=== PATIENT | male | born 1965 | race Caucasian/White ===

== ENCOUNTER → 2016-06-01 | Outpatient (CLI) | payer OTHER | LOC: RAD 09:16 | PROVIDERS: ATTEND Internal Medicine Pulmonary Disease | DX: R91.8 Other nonspecific abnormal finding of lung field (principal) | CPT/HCPCS: 71250 ==

== ENCOUNTER 2016-06-07 09:54 | Day surgery (SDC) | payer OTHER ==
[2016-06-01 10:38] LABS: ABSOLUTE EOSINOPHILS # (AUTO) 0.1 10^3/uL (0.0-0.6); ABSOLUTE LYMPHOCYTES (AUTO) 1.3 10^3/uL (0.5-4.7); ABSOLUTE MONOCYTES (AUTO) 0.8 10^3/uL (0.1-1.4); ABSOLUTE NEUT (AUTO) 6.3 10^3/uL (1.7-8.2); BASOPHILS % (AUTO) 0.5 % (0-2); EOSINOPHILS % (AUTO) 1.5 % (0-6); HEMATOCRIT 38.8 % (37.9-51.0); HEMOGLOBIN 13.1 g/dL (13.5-17.0); HGB HCT DIFFERENCE 0.5; LYMPHOCYTES % (AUTO) 15.4 % (13-45); MEAN CORPUSCULAR HEMOGLOBIN 30.9 pg (27.0-33.4); MEAN CORPUSCULAR HGB CONC 33.8 g/dL (32.0-36.0); MEAN CORPUSCULAR VOLUME 91 fl (80-97); MONOCYTES % (AUTO) 9.3 % (3-13); RED BLOOD COUNT 4.25 10^6/uL (4.35-5.55); RED CELL DISTRIBUTION WIDTH 14.8 % (11.5-14.0); SEGMENTED NEUTROPHILS % (AUTO) 73.3 % (42-78); WHITE BLOOD COUNT 8.6 10^3/uL (4.0-10.5)
[2016-06-01 10:43] LABS: PROTHROMBIN TIME 12.5 SEC (11.4-15.4)
[2016-06-01 11:06] LABS: ANION GAP 13 (5-19); BLOOD UREA NITROGEN 20 mg/dL (7-20); CALCIUM 9.5 mg/dL (8.4-10.2); CARBON DIOXIDE 28 mmol/L (22-30); CHLORIDE 100 mmol/L (98-107); CREATININE RESULT 0.96 mg/dL (0.52-1.25); GLUCOSE 115 mg/dL (75-110); POTASSIUM 5.3 mmol/L (3.6-5.0); SODIUM 140.9 mmol/L (137-145)
[~2016-06-07 09:54] MED LIST: ALBUTEROL SULFATE 0.083% NEB 2.5 MG/3 ML AMPUL NEB PRN; LACTATED RINGERS 1000 ML IV PRN; LIDOCAINE 0.5% INJ-PF (5 MG/ML) 50 ML SDV SUBCUT PRN; LIDOCAINE 2% INJ-PF (20 MG/ML) 10 ML AMPUL ONE; LIDOCAINE 4% INJ/PF (40 MG/ML) 5 ML AMPUL NEB PRN; SUCCINYLCHOLINE CHLORIDE INJ 200 MG/10 ML VIAL ONE
[2016-06-07] MEDS ORDERED: PROPOFOL INJ 200 MG/20 ML VIAL IV ONE (11:26)
[2016-06-07] MEDS ORDERED: FENTANYL CITRATE INJ/PF 100 MCG/2 ML AMPUL ONE ×2 (11:26→13:06)
[2016-06-07] MEDS ORDERED: DEXMEDETOMIDINE INJ 80 MCG/20 ML VIAL IV ONE (11:26)
[2016-06-07] MEDS ORDERED: MIDAZOLAM 2 MG/2 ML INJ ONE (11:26)
--- NOTE | 2016-06-07 13:53 | Operative Report ---
Operative Report DATE OF SURGERY: 06/07/16 Operative Report: NPO 12 hrs prior to procedure taken to brochoscopy suite,intubated # 8 ET tube.Then tracheo b;consents reviewed,iv access established.Tracheobronchial tree was exsplored.No abnormalities of distal trache;mild splaying of the cecilio.Lmain stem ,Lupper lobe,lingulaand Llower lobe were normal.There were no abnormalities of the R main stem bronchu,bronchus intermedius,R middle lobe or R lower lobe. There was SUBMUCOSAL SWELLING AND DISTOTION OF ALL SUBSEGMENTS R UPPER LOBE;lavage,transbronchial and Larson needle biopsy wer taken from R upper lobe sent to lab for appropriate studies.Patient tolerate proceedure well SAO2 99% CXR in progress. PREOPERATIVE DIAGNOSIS: RUL Mass POSTOPERATIVE DIAGNOSIS: RUL Mass OPERATION: fiberoptic bronchoscopy with bronchoalveolar lavage;transbronchial; Larson needle biopsy SURGEON: KIRTI LANIER ANESTHESIA: GA TISSUE REMOVED OR ALTERED: broncho-alveolar lavage;transbronchial biopsy;Larson needle biopsy COMPLICATIONS: none ESTIMATED BLOOD LOSS: 5cc INTRAOPERATIVE FINDINGS: diffuse submucosal swelling RUL subsegments
[2016-06-07] MEDS ORDERED: ACETAMINOPHEN 100 ML IV ONE (14:09)
[2016-06-07 14:37] LABS: FLUID APPEARANCE TURBID; FLUID RBC DILUENT USED SALINE; FLUID RBC DILUTION FACTOR 21; FLUID RBC SIDE 1 195; FLUID RBC SIDE 2 175; FLUID TYPE BRONCHIAL LAVAGE; TOTAL RBC SQUARES COUNTED FLD 5
[2016-06-07 15:27] VITALS: BP 117/74
--- NOTE | 2016-06-07 15:42 | EKG REPORT ---
SEVERITY:- NORMAL ECG - SINUS RHYTHM : Confirmed by: Bharati Thomason MD 07-Jun-2016 15:41:47
== END 2016-06-07 15:40 | disposition home or self-care (01) ==
LOC: OROUT 09:54
PROVIDERS: ATTEND Internal Medicine Pulmonary Disease
PROC: 0BBC8ZX Excision of Right Upper Lung Lobe, Via Natural or Artificial Opening Endoscopic, Diagnostic (ICD-10-PCS; principal; 2016-06-07 12:00)
DX: C34.11 Malignant neoplasm of upper lobe, right bronchus or lung (principal); I20.9 Angina pectoris, unspecified; I10 Essential (primary) hypertension; Q05.9 Spina bifida, unspecified; Z79.899 Other long term (current) drug therapy; Z71.6 Tobacco abuse counseling; Z87.891 Personal history of nicotine dependence; Z87.01 Personal history of pneumonia (recurrent)
CPT/HCPCS: 31628; 31629; 31624; 36415 ×2; 87070; 87205; 87206; 87116; 87101; 84132; 85025; 85610; 85730; 89050; 80048; 87015; 88162; 88342 ×2; 88341 ×2; 88305 ×2; 88313 ×2; 71010; 93005; 93010; 94640; J2250; J3010; J0330; J2704; J3490 ×3; J0131; 520

== ENCOUNTER → 2016-06-22 | Outpatient (CLI) | payer OTHER | LOC: RAD 10:09 | PROVIDERS: ATTEND Internal Medicine | DX: C34.90 Malignant neoplasm of unspecified part of unspecified bronchus or lung (principal) | CPT/HCPCS: 70553; A9577 ==

== ENCOUNTER 2016-06-26 08:08 | Outpatient (CLI) | payer OTHER ==
[~2016-06-26 08:08] MED LIST changes: -ALBUTEROL SULFATE 0.083% NEB 2.5 MG/3 ML AMPUL NEB PRN; +CISPLATIN IV PRN; +ETOPOSIDE IV PRN; +FOSAPREPITANT DIMEGLUMINE 150 MG in NORMAL SALINE 150 ML IV PRN; +FUROSEMIDE INJ/PF 20 MG/2 ML SDV IV PRN; -LACTATED RINGERS 1000 ML IV PRN; -LIDOCAINE 0.5% INJ-PF (5 MG/ML) 50 ML SDV SUBCUT PRN; -LIDOCAINE 2% INJ-PF (20 MG/ML) 10 ML AMPUL ONE; -LIDOCAINE 4% INJ/PF (40 MG/ML) 5 ML AMPUL NEB PRN; +NORMAL SALINE 1000 ML 1,000 ML IV PRN; +NORMAL SALINE IV PRN; +ONDANSETRON HCL/PF 16 MG, DEXAMETHASONE SOD PHOSPHATE 10 MG in NORMAL SALINE 50 ML IV PRN; -SUCCINYLCHOLINE CHLORIDE INJ 200 MG/10 ML VIAL ONE
[2016-06-26 08:57] LABS: ABSOLUTE EOSINOPHILS # (AUTO) 0.3 10^3/uL (0.0-0.6); ABSOLUTE LYMPHOCYTES (AUTO) 1.6 10^3/uL (0.5-4.7); ABSOLUTE MONOCYTES (AUTO) 0.5 10^3/uL (0.1-1.4); ABSOLUTE NEUT (AUTO) 2.8 10^3/uL (1.7-8.2); BASOPHILS % (AUTO) 0.8 % (0-2); HEMATOCRIT 38.4 % (37.9-51.0); HEMOGLOBIN 13.4 g/dL (13.5-17.0); HGB HCT DIFFERENCE 1.8; LYMPHOCYTES % (AUTO) 30.8 % (13-45); MEAN CORPUSCULAR HEMOGLOBIN 31.6 pg (27.0-33.4); MEAN CORPUSCULAR HGB CONC 34.9 g/dL (32.0-36.0); MEAN CORPUSCULAR VOLUME 91 fl (80-97); MONOCYTES % (AUTO) 9.8 % (3-13); RED BLOOD COUNT 4.23 10^6/uL (4.35-5.55); RED CELL DISTRIBUTION WIDTH 14.5 % (11.5-14.0); SEGMENTED NEUTROPHILS % (AUTO) 53.6 % (42-78); WHITE BLOOD COUNT 5.3 10^3/uL (4.0-10.5)
[2016-06-26 09:19] LABS: ALANINE AMINOTRANSFERASE 51 U/L (21-72); ALBUMIN 4.7 g/dL (3.5-5.0); ALKALINE PHOSPHATASE 84 U/L (38-126); ANION GAP 16 (5-19); ASPARTATE AMINO TRANSFERASE 70 U/L (17-59); BILIRUBIN,DIRECT 0.3 mg/dL (0.0-0.4); BILIRUBIN,TOTAL 0.6 mg/dL (0.2-1.3); BLOOD UREA NITROGEN 7 mg/dL (7-20); CALCIUM 9.7 mg/dL (8.4-10.2); CARBON DIOXIDE 26 mmol/L (22-30); CHLORIDE 100 mmol/L (98-107); CREATININE RESULT 0.98 mg/dL (0.52-1.25); GLUCOSE 92 mg/dL (75-110); POTASSIUM 4.2 mmol/L (3.6-5.0); SODIUM 142.3 mmol/L (137-145); TOTAL PROTEIN 7.7 g/dL (6.3-8.2)
[2016-06-26 10:00] VITALS: BP 125/77
== END 2016-06-26 14:20 | disposition home or self-care (01) ==
LOC: II 08:08 → 5TH 08:12 → II 14:20
PROVIDERS: ATTEND Specialist
PROC: 3E03305 Introduction of Other Antineoplastic into Peripheral Vein, Percutaneous Approach (ICD-10-PCS; principal; 2016-06-26)
PROC: 3E033GC Introduction of Other Therapeutic Substance into Peripheral Vein, Percutaneous Approach (ICD-10-PCS; 2016-06-26)
DX: Z51.11 Encounter for antineoplastic chemotherapy (principal); C34.90 Malignant neoplasm of unspecified part of unspecified bronchus or lung; D70.1 Agranulocytosis secondary to cancer chemotherapy
CPT/HCPCS: 96413; 96367; 96375; 96361; 96417; 36415; 85025; 80053; J9060; J1940; J9181; J2405; J7040; J1100; J1453; 96360; 96415

== ENCOUNTER 2016-06-27 09:49 | Outpatient (CLI) | payer OTHER ==
[~2016-06-27 09:49] MED LIST changes: -CISPLATIN IV PRN; +DEXAMETHASONE SOD PHOSPHATE 10 MG in NORMAL SALINE 50 ML IV PRN; -FOSAPREPITANT DIMEGLUMINE 150 MG in NORMAL SALINE 150 ML IV PRN; -FUROSEMIDE INJ/PF 20 MG/2 ML SDV IV PRN; -NORMAL SALINE 1000 ML 1,000 ML IV PRN; +NORMAL SALINE 250 ML IV PRN; -ONDANSETRON HCL/PF 16 MG, DEXAMETHASONE SOD PHOSPHATE 10 MG in NORMAL SALINE 50 ML IV PRN
[2016-06-27 10:16] VITALS: BP 120/72
== END 2016-06-27 14:22 | disposition home or self-care (01) ==
LOC: II 09:49 → 5TH 09:50 → II 14:22
PROVIDERS: ATTEND Specialist
PROC: 3E03305 Introduction of Other Antineoplastic into Peripheral Vein, Percutaneous Approach (ICD-10-PCS; principal; 2016-06-27)
PROC: 3E0333Z Introduction of Anti-inflammatory into Peripheral Vein, Percutaneous Approach (ICD-10-PCS; 2016-06-27)
DX: Z51.11 Encounter for antineoplastic chemotherapy (principal); C34.90 Malignant neoplasm of unspecified part of unspecified bronchus or lung; D70.1 Agranulocytosis secondary to cancer chemotherapy
CPT/HCPCS: 96413; 96367; J9181; J7040; J1100

== ENCOUNTER 2016-06-28 09:51 | Outpatient (CLI) | payer OTHER ==
[2016-06-28 10:16] VITALS: BP 145/89
== END 2016-06-28 12:39 | disposition home or self-care (01) ==
LOC: II 09:51 → 5TH 09:59 → II 12:39
PROVIDERS: ATTEND Specialist
PROC: 3E03305 Introduction of Other Antineoplastic into Peripheral Vein, Percutaneous Approach (ICD-10-PCS; principal; 2016-06-28)
PROC: 3E0333Z Introduction of Anti-inflammatory into Peripheral Vein, Percutaneous Approach (ICD-10-PCS; 2016-06-28)
DX: Z51.11 Encounter for antineoplastic chemotherapy (principal); C34.90 Malignant neoplasm of unspecified part of unspecified bronchus or lung; D70.1 Agranulocytosis secondary to cancer chemotherapy
CPT/HCPCS: 96413; 96367; 96360; J9181; J7040; J1100; 96361; 96375

== ENCOUNTER 2016-06-29 12:06 | Outpatient (CLI) | payer OTHER ==
[~2016-06-29 12:06] MED LIST changes: -DEXAMETHASONE SOD PHOSPHATE 10 MG in NORMAL SALINE 50 ML IV PRN; -ETOPOSIDE IV PRN; -NORMAL SALINE 250 ML IV PRN; -NORMAL SALINE IV PRN; +PEGFILGRASTIM INJ 6 MG/0.6 ML DISP.SYRIN SUBCUT PRN
[2016-06-29 12:28] VITALS: BP 135/52
== END 2016-06-29 12:31 | disposition home or self-care (01) ==
LOC: II 12:06 → 5TH 12:07 → II 12:31
PROVIDERS: ATTEND Specialist
PROC: 3E013GC Introduction of Other Therapeutic Substance into Subcutaneous Tissue, Percutaneous Approach (ICD-10-PCS; principal; 2016-06-29)
DX: Z76.89 Persons encountering health services in other specified circumstances (principal); C34.90 Malignant neoplasm of unspecified part of unspecified bronchus or lung; D70.1 Agranulocytosis secondary to cancer chemotherapy
CPT/HCPCS: 96372; J2505

== ENCOUNTER → 2016-07-01 | Outpatient (CLI) | payer OTHER | LOC: RAD 19:34 | PROVIDERS: ATTEND Internal Medicine Pulmonary Disease | DX: C34.90 Malignant neoplasm of unspecified part of unspecified bronchus or lung (principal) | CPT/HCPCS: 78815; A9552 ==

== ENCOUNTER 2016-07-08 15:21 | Inpatient (IN) | payer MEDICAID, OTHER ==
--- NOTE | 2016-07-08 15:53 | ER Document Report ---
ED Medical Screen (RME) - General Chief Complaint: Abdominal Pain Stated Complaint: ABDOMINAL PAIN Notes: 51 yo male with hx/o lung cancer, receiving chemo, c/o constipation and lower abdominal pain x 3-4 days. Last BM Saturday. + nausea, no vomiting. has not eaten since Saturday evening. able to tolerate liquids. no relief with OTC laxatives. Oncologist Dr Liu. no fever, + sweats and chills. last chemo July 27 TRAVEL OUTSIDE OF THE [place] IN LAST 30 DAYS: No - Related Data Allergies/Adverse Reactions: CAT Allergy (Unknown, Uncoded 07/08/16 15:42) POLLEN Allergy (Unknown, Uncoded 07/08/16 15:42) Past Medical History - Past Medical History Cardiac Medical History: Denies: Hx Coronary Artery Disease, Hx Heart Attack, Hx Hypertension Pulmonary Medical History: Reports: Hx Pneumonia - MARCH 2016 Denies: Hx Asthma, Hx Bronchitis, Hx COPD, Hx Tuberculosis Neurological Medical History: Denies: Hx Cerebrovascular Accident, Hx Seizures Renal/ Medical History: Denies: Hx Peritoneal Dialysis Musculoskeltal Medical History: Denies Hx Arthritis Past Surgical History: Denies: Hx Pacemaker - Immunizations Hx Diphtheria, Pertussis, Tetanus Vaccination: Yes Physical Exam - Vital signs Vitals: Temp Pulse Resp BP Pulse Ox 98.4 F 124 H 20 119/81 97 07/08/16 15:41 07/08/16 15:41 07/08/16 15:41 07/08/16 15:41 07/08/16 15:41 Course - Vital Signs Vital signs: Temp Pulse Resp BP Pulse Ox 98.4 F 124 H 20 119/81 97 07/08/16 15:41 07/08/16 15:41 07/08/16 15:41 07/08/16 15:41 07/08/16 15:41
[2016-07-08 16:46] LABS: ABSOLUTE EOSINOPHILS # (AUTO) 0.1 10^3/uL (0.0-0.6); ABSOLUTE LYMPHOCYTES (AUTO) 1.5 10^3/uL (0.5-4.7); ABSOLUTE MONOCYTES (AUTO) 0.8 10^3/uL (0.1-1.4); ABSOLUTE NEUT (AUTO) 4.6 10^3/uL (1.7-8.2); BASOPHILS % (AUTO) 0.4 % (0-2); EOSINOPHILS % (AUTO) 1.3 % (0-6); HEMATOCRIT 35.3 % (37.9-51.0); HEMOGLOBIN 12.1 g/dL (13.5-17.0); LYMPHOCYTES % (AUTO) 21.8 % (13-45); MEAN CORPUSCULAR HEMOGLOBIN 31.5 pg (27.0-33.4); MEAN CORPUSCULAR HGB CONC 34.2 g/dL (32.0-36.0); MEAN CORPUSCULAR VOLUME 92 fl (80-97); MONOCYTES % (AUTO) 11.5 % (3-13); RED BLOOD COUNT 3.84 10^6/uL (4.35-5.55); RED CELL DISTRIBUTION WIDTH 14.5 % (11.5-14.0)
[2016-07-08 16:57] LABS: ALANINE AMINOTRANSFERASE 30 U/L (21-72); ALBUMIN 4.4 g/dL (3.5-5.0); ALKALINE PHOSPHATASE 111 U/L (38-126); ANION GAP 15 (5-19); ASPARTATE AMINO TRANSFERASE 31 U/L (17-59); BILIRUBIN,DIRECT 0.6 mg/dL (0.0-0.4); BILIRUBIN,TOTAL 0.7 mg/dL (0.2-1.3); BLOOD UREA NITROGEN 25 mg/dL (7-20); CALCIUM 9.4 mg/dL (8.4-10.2); CARBON DIOXIDE 25 mmol/L (22-30); CHLORIDE 88 mmol/L (98-107); CREATININE RESULT 3.02 mg/dL (0.52-1.25); GLUCOSE 80 mg/dL (75-110); POTASSIUM 4.6 mmol/L (3.6-5.0); SODIUM 127.6 mmol/L (137-145); TOTAL PROTEIN 7.4 g/dL (6.3-8.2)
[2016-07-08] MEDS ORDERED: MINERAL OIL 30 ML UDCUP PR ONE (17:33)
[2016-07-08] MEDS ORDERED: NORMAL SALINE 1000 ML 1,000 ML IV ONE (17:33)
--- NOTE | 2016-07-08 18:10 | ER Document Report ---
ED General - General Time seen by provider: 17:47 Mode of Arrival: Ambulatory Information source: Patient TRAVEL OUTSIDE OF THE [place] IN LAST 30 DAYS: No - HPI Onset: Other - Refer to HPI notes Similar symptoms previously: No Recently seen / treated by doctor: No <CAMERON DELGADO - Last Filed: 07/08/16 19:06> <KELLYKAMERON FERNANDEZ - Last Filed: 07/08/16 21:42> - General Chief Complaint: Abdominal Pain Stated Complaint: ABDOMINAL PAIN Notes: Patient is a 51-year-old male presented to the emergency department for constipation and abdominal pain. Patient has not had a bowel movement since Saturday. Patient states that his pain started on Saturday and was worse Saturday and Saturday. Patient states he is also having pain into his scrotum. Patient states that when he does try to have a bowel movement he has very painful spasms. Patient states he has taken laxatives and stool softeners with no relief. Patient took a laxative on Saturday and had some diarrhea but it was only a small amount. Patient has some nausea and chills but denies any vomiting. Patient states that he is unable to sit down on the toilet due to his pain which is also affecting his ability to urinate. Patient states that he can only urinate while he is lying down because of pain. Patient has a history of hypertension and lung cancer for which he is currently undergoing chemotherapy. Patient's primary care physician is Dr. Bhardwaj and he is seeing Dr. Liu for his lung cancer. (CAMERON DELGADO) - Related Data Allergies/Adverse Reactions: cat dander Allergy (Unknown, Unverified 07/08/16 19:49) Facial swelling pollen extracts Allergy (Unknown, Unverified 07/08/16 19:50) Facial swelling POLLEN Allergy (Unknown, Uncoded 07/08/16 19:50) Facial swelling Past Medical History - General Information source: Patient - Social History Smoking Status: Former Smoker Cigarette use (# per day): No Chew tobacco use (# tins/day): No Frequency of alcohol use: None Drug Abuse: None Family History: None Patient has suicidal ideation: No Patient has homicidal ideation: No Pulmonary Medical History: Reports: Hx Pneumonia - 2016 Malignancy Medical History: Reports Hx Lung Cancer Surgical Hx: Negative - Immunizations Hx Diphtheria, Pertussis, Tetanus Vaccination: Yes Hx Pneumococcal Vaccination: 06/07/11 <CAMERON DELGADO - Last Filed: 07/08/16 19:06> Review of Systems - Review of Systems Constitutional: No symptoms reported EENT: No symptoms reported Cardiovascular: No symptoms reported Respiratory: No symptoms reported Gastrointestinal: See HPI, Abdomen distended, Abdominal pain, Diarrhea, Constipation, Last bowel movement - Saturday Genitourinary: No symptoms reported Male Genitourinary: No symptoms reported Musculoskeletal: No symptoms reported Skin: No symptoms reported Hematologic/Lymphatic: No symptoms reported Neurological/Psychological: No symptoms reported -: Yes All other systems reviewed and negative <CAMERON DELGADO - Last Filed: 07/08/16 19:06> Physical Exam <CAMERON DELGADO - Last Filed: 07/08/16 19:06> <KAMERON COONEY - Last Filed: 07/08/16 21:42> - Vital signs Vitals: Temp Pulse Resp BP Pulse Ox 98.4 F 124 H 20 119/81 97 07/08/16 15:41 07/08/16 15:41 07/08/16 15:41 07/08/16 15:41 07/08/16 15:41 - Notes Notes: GENERAL: Alert, interacts well. No acute distress. HEAD: Normocephalic, atraumatic. EYES: Pupils equal, round, and reactive to light. Extraocular movements intact. ENT: Oral mucosa moist, tongue midline. NECK: Full range of motion. Supple. Trachea midline. LUNGS: Clear to auscultation bilaterally, no wheezes, rales, or rhonchi. No respiratory distress. HEART: Regular rate and rhythm. No murmurs, gallops, or rubs. ABDOMEN: Moderately distended abdomen, mild tenderness to palpation. Non- distended. Bowel sounds present in all 4 quadrants. RECTAL: Semi-firm stool at fingertip, otherwise soft brown stool, no impaction, one thrombosed hemorrhoid at 6 o'clock position EXTREMITIES: Moves all 4 extremities spontaneously. No edema. No cyanosis. NEUROLOGICAL: Alert and oriented x3. Normal speech. PSYCH: Normal affect, normal mood. SKIN: Warm, dry, normal turgor. No rashes or lesions noted. (CAMERON DELGADO) Course - Laboratory Result Diagrams: 07/08/16 16:00 07/08/16 16:00 - Consults Dr. Polanco Time consulted: 18:05 Consulted provider: will see as inpatient <CAMERON DELGADO - Last Filed: 07/08/16 19:06> - Laboratory Result Diagrams: 07/08/16 16:00 07/08/16 16:00 <KAMERON COONEY - Last Filed: 07/08/16 21:42> - Re-evaluation Re-evalutation: 07/08/16 18:12 Mild anemia, CMP shows new hyponatremia and no acute renal failure with sodium of 127.6 and a BUN of 25 creatinine of 3.02. Acute abdominal series shows large stool ball in the rectum, some nonspecific air-fluid levels. Physical exam was not consistent with enteritis nor is history. Patient will be given soapsuds and mineral oil enema for the constipation, admitted for the new acute renal failure and hyponatremia. 07/08/16 21:42 Good results with him up. Patient feels much better. (KAMERON COONEY) - Vital Signs Vital signs: Temp Pulse Resp BP Pulse Ox 99.0 F 88 15 119/76 97 07/08/16 19:10 07/08/16 21:19 07/08/16 21:19 07/08/16 21:19 07/08/16 21:19 - Laboratory Laboratory results interpreted by me: 07/08/16 07/08/16 16:00 16:00 RBC 3.84 L Hgb 12.1 L Hct 35.3 L RDW 14.5 H Sodium 127.6 L Chloride 88 L BUN 25 H Creatinine 3.02 H Est GFR ( Amer) 27 L Est GFR (Non-Af Amer) 22 L Direct Bilirubin 0.6 H - Consults Dr. Polanco Reason for consultation: 07/08/16 18:[address] Polanco to discuss patient and recommendations. Patient will be admitted to a medical floor. (CAMERON DELGADO) Discharge <CAMERON DELGADO - Last Filed: 07/08/16 19:06> - Discharge Admitting Provider: Hospitalist - [facility] Unit Admitted: Medical Floor <KAMERON COONEY - Last Filed: 07/08/16 21:42> - Discharge Clinical Impression: Hyponatremia Acute renal failure Qualifiers: Acute renal failure type: unspecified Qualified Code(s): N17.9 - Acute kidney failure, unspecified Constipation Qualifiers: Constipation type: unspecified constipation type Qualified Code(s): K59.00 - Constipation, unspecified Condition: Fair Disposition: ADMITTED INPATIENT Scribe Attestation: 07/08/16 21:42 I personally performed the services described in the documentation, reviewed and edited the documentation which was dictated to the scribe in my presence, and it accurately records my words and actions. (KAMERON COONEY) Scribe Documentation - Scribe Written by Scribe:: Salima Rod, 07/08/16 18:50 acting as scribe for :: Carol <CAMERON DELGADO - Last Filed: 07/08/16 19:06>
[2016-07-08] MEDS ORDERED: ALBUTEROL SULFATE 0.083% NEB 2.5 MG/3 ML AMPUL NEB PRN (18:41)
[2016-07-08] MEDS ORDERED: OXYCODONE-ACETAMINOPHEN 5-325 MG TABLET PO PRN (18:41)
[2016-07-08] MEDS ORDERED: ONDANSETRON HCL INJ/PF 4 MG/2 ML SDV IV PRN (18:41)
[2016-07-08] MEDS ORDERED: ONDANSETRON 4 MG TAB.RAPDIS PO PRN (18:41)
[2016-07-08] MEDS ORDERED: ACETAMINOPHEN 325 MG TABLET PO PRN (18:41)
--- NOTE | 2016-07-08 19:03 | PDOC H&P ---
History of Present Illness Admission Date/PCP: RITU MA MD Patient complains of: Abdominal pain History of Present Illness: VINICIUS VALLE is a 51 year old male who was recently diagnosed with lung cancer and has recently started chemotherapy. The patient reports over the last week she's not felt well and has had decreased by mouth intake. He presented with lower abdominal pain and was found to be very constipated on x- rays. The patient reports he has had decreased urinary output. Been trying to drink enough fluids but has just not felt well with nausea and the abdominal pain. Patient did receive last last week. He has been taking some oxycodone because of the pain. He denies any fevers or chills. He denies any melena or bright blood per rectum. He denies any significant change in his weight. He is noted to have acute renal failure. He has been on losartan for his blood pressure for quite some time. Past Medical History Cardiac Medical History: Reports: Hypertension Denies: Coronary Artery Disease, Myocardial Infarction Pulmonary Medical History: Reports: Pneumonia - MARCH 2016 Denies: Asthma, Bronchitis, Chronic Obstructive Pulmonary Disease (COPD), Tuberculosis EENT Medical History: Reports: None Neurological Medical History: Reports: None Endocrine Medical History: Reports: None Renal/ Medical History: Reports: None Malignancy Medical History: Reports: Lung Cancer GI Medical History: Reports: None Musculoskeltal Medical History: Denies: Arthritis Hematology: Reports: None Infectious Medical History: Reports: None Past Surgical History Past Surgical History: Reports: Orthopedic Surgery - Left wrist surgery, Other - History of surgery for testicular torsion 40 years ago Social History Information Source: Patient Lives with: Family Smoking Status: Former Smoker Frequency of Alcohol Use: Rare Hx Recreational Drug Use: No Drugs: None Hx Prescription Drug Abuse: No - Advance Directive Resuscitation Status: Full Code Family History Family History: Father is 84 alive and has mild dementia. Mother is 76 alive and has no chronic health problems. Parental Family History Reviewed: Yes Children Family History Reviewed: No Sibling(s) Family History Reviewed.: No Medication/Allergy Home Medications: Losartan Potassium 50 mg PO DAILY 05/31/16 Allergies/Adverse Reactions: CAT Allergy (Unknown, Uncoded 07/08/16 15:42) POLLEN Allergy (Unknown, Uncoded 07/08/16 15:42) Review of Systems Constitutional: ABSENT: chills, fever(s), headache(s), weight gain, weight loss Eyes: ABSENT: visual disturbances Ears: ABSENT: hearing changes Cardiovascular: ABSENT: chest pain, dyspnea on exertion, edema, orthropnea, palpitations Respiratory: ABSENT: cough, hemoptysis Gastrointestinal: PRESENT: abdominal pain, constipation, nausea. ABSENT: diarrhea, hematemesis, melena, vomiting Genitourinary: ABSENT: dysuria, hematuria Musculoskeletal: ABSENT: joint swelling Integumentary: ABSENT: rash, wounds Neurological: ABSENT: abnormal gait, abnormal speech, confusion, dizziness, focal weakness, syncope Psychiatric: ABSENT: anxiety, depression Endocrine: ABSENT: cold intolerance, heat intolerance, polydipsia, polyuria Hematologic/Lymphatic: ABSENT: easy bleeding, easy bruising Physical Exam Vital Signs: Temp Pulse Resp BP Pulse Ox 98.4 F 124 H 20 119/81 97 07/08/16 15:41 07/08/16 15:41 07/08/16 15:41 07/08/16 15:41 07/08/16 15:41 Intake & Output 07/07/16 07/08/16 07/09/16 06:59 06:59 06:59 Weight 95.254 kg General appearance: PRESENT: no acute distress, well-developed, well-nourished Head exam: PRESENT: atraumatic, normocephalic Eye exam: PRESENT: conjunctiva pink, EOMI, PERRLA. ABSENT: scleral icterus Ear exam: PRESENT: normal external ear exam Mouth exam: PRESENT: moist, tongue midline Neck exam: ABSENT: carotid bruit, JVD, lymphadenopathy, thyromegaly Respiratory exam: PRESENT: clear to auscultation patricia. ABSENT: rales, rhonchi, wheezes Cardiovascular exam: PRESENT: RRR. ABSENT: diastolic murmur, rubs, systolic murmur GI/Abdominal exam: PRESENT: normal bowel sounds, soft, tenderness - Mild lower abdominal tenderness but no guarding or rebound. ABSENT: distended, guarding, mass, organolmegaly, rebound Extremities exam: PRESENT: full ROM. ABSENT: calf tenderness, clubbing, pedal edema Neurological exam: PRESENT: alert, awake, oriented to person, oriented to place , oriented to time, oriented to situation, CN II-XII grossly intact. ABSENT: motor sensory deficit Psychiatric exam: PRESENT: appropriate affect, normal mood Skin exam: PRESENT: dry, intact, warm. ABSENT: cyanosis, rash Results Laboratory Results: 07/08/16 16:00 07/08/16 16:00 07/08/16 07/08/16 16:00 16:00 WBC 7.0 RBC 3.84 L Hgb 12.1 L Hct 35.3 L MCV 92 MCH 31.5 MCHC 34.2 RDW 14.5 H Plt Count 257 Seg Neutrophils % 65.0 Lymphocytes % 21.8 Monocytes % 11.5 Eosinophils % 1.3 Basophils % 0.4 Absolute Neutrophils 4.6 Absolute Lymphocytes 1.5 Absolute Monocytes 0.8 Absolute Eosinophils 0.1 Absolute Basophils 0.0 Sodium 127.6 L Potassium 4.6 Chloride 88 L Carbon Dioxide 25 Anion Gap 15 BUN 25 H Creatinine 3.02 H Est GFR ( Amer) 27 L Est GFR (Non-Af Amer) 22 L Glucose 80 Calcium 9.4 Total Bilirubin 0.7 AST 31 ALT 30 Alkaline Phosphatase 111 Total Protein 7.4 Albumin 4.4 Impressions: Acute Abdomen Series 07/08/16 15:54 IMPRESSION: NONSPECIFIC BOWEL GAS PATTERN. Numerous scattered small bowel loops with small air fluid levels. No distended large or small bowel loops. Possible developing ileus or enteritis, followup if persistent concern for developing obstruction. Assessment & Plan - Diagnosis (1) Acute renal failure Qualifiers: Acute renal failure type: unspecified Qualified Code(s): N17.9 - Acute kidney failure, unspecified Is this a current diagnosis for this admission?: YesPlan: Patient has had decreased by mouth intake as the most likely cause for his acute renal failure. We will give IV fluids overnight. He also is on losartan and we will stop that. He has been getting chemotherapy but he is not certain as to what that is. We'll have Dr. Liu evaluate in the morning to make certain that this is not related to any of his medications he is receiving for his chemotherapy. (2) Lung cancer Is this a current diagnosis for this admission?: YesPlan: Patient has been seen Dr. Liu for his chemotherapy. He received Neulasta last week. (3) Constipation Qualifiers: Constipation type: unspecified constipation type Qualified Code(s): K59.00 - Constipation, unspecified Is this a current diagnosis for this admission?: YesPlan: The patient received an enema in the emergency room. He has been taking oxycodone for pain which is the probable cause for this (4) Hyponatremia Is this a current diagnosis for this admission?: YesPlan: Most likely related to his acute renal failure. We'll give IV fluids and monitor. - Time Time Spent: 50 to 70 Minutes - Inpatient Certification Medical Necessity: Need Close Monitoring Due to Risk of Patient Decompensation, Need For IV Fluids
[2016-07-08] MEDS ORDERED: FAMOTIDINE 20 MG TABLET PO SCH (22:00)
[2016-07-09] MEDS: NORMAL SALINE 1000 ML 1,000 ML IV PRN ×2 (00:55→06:36)
[2016-07-09 06:17] LABS: ABSOLUTE EOSINOPHILS # (AUTO) 0.1 10^3/uL (0.0-0.6); ABSOLUTE LYMPHOCYTES (AUTO) 1.2 10^3/uL (0.5-4.7); ABSOLUTE MONOCYTES (AUTO) 0.7 10^3/uL (0.1-1.4); ABSOLUTE NEUT (AUTO) 2.4 10^3/uL (1.7-8.2); BASOPHILS % (AUTO) 0.5 % (0-2); EOSINOPHILS % (AUTO) 1.6 % (0-6); HEMATOCRIT 27.5 % (37.9-51.0); HGB HCT DIFFERENCE 1.9; MEAN CORPUSCULAR HEMOGLOBIN 32.4 pg (27.0-33.4); MEAN CORPUSCULAR HGB CONC 35.7 g/dL (32.0-36.0); MEAN CORPUSCULAR VOLUME 91 fl (80-97); MONOCYTES % (AUTO) 14.7 % (3-13); RED BLOOD COUNT 3.03 10^6/uL (4.35-5.55); RED CELL DISTRIBUTION WIDTH 14.5 % (11.5-14.0); SEGMENTED NEUTROPHILS % (AUTO) 55.2 % (42-78); WHITE BLOOD COUNT 4.4 10^3/uL (4.0-10.5)
[2016-07-09 06:29] LABS: HEMOGLOBIN 9.8 g/dL (13.5-17.0)
[2016-07-09 06:35] LABS: ANION GAP 9 (5-19); BLOOD UREA NITROGEN 25 mg/dL (7-20); CALCIUM 8.4 mg/dL (8.4-10.2); CARBON DIOXIDE 25 mmol/L (22-30); CHLORIDE 97 mmol/L (98-107); CREATININE RESULT 2.56 mg/dL (0.52-1.25); GLUCOSE 97 mg/dL (75-110); MAGNESIUM 1.6 mg/dL (1.6-2.3); POTASSIUM 4.7 mmol/L (3.6-5.0)
--- NOTE | 2016-07-09 09:37 | PDOC PROGRESS REPORT ---
Subjective Progress Note for:: 07/09/16 Subjective:: Denies any complaints. Physical Exam Vital Signs: Temp Pulse Resp BP Pulse Ox 98.7 F 72 18 133/80 H 96 07/09/16 08:01 07/09/16 08:01 07/09/16 08:01 07/09/16 08:01 07/09/16 08:01 Intake & Output 07/08/16 07/09/16 07/10/16 06:59 06:59 06:59 Intake Total 340 Balance 340 Weight 89.1 kg General appearance: PRESENT: no acute distress Eye exam: PRESENT: conjunctiva pink. ABSENT: scleral icterus Mouth exam: PRESENT: moist, tongue midline Neck exam: ABSENT: JVD Respiratory exam: PRESENT: clear to auscultation patricia. ABSENT: rales, rhonchi, wheezes Cardiovascular exam: PRESENT: RRR. ABSENT: diastolic murmur, rubs, systolic murmur GI/Abdominal exam: PRESENT: normal bowel sounds, soft. ABSENT: distended, guarding, mass, organolmegaly, rebound, tenderness Extremities exam: ABSENT: calf tenderness, clubbing, pedal edema Neurological exam: PRESENT: alert, awake, oriented to person, oriented to place , oriented to time, oriented to situation, CN II-XII grossly intact. ABSENT: motor sensory deficit Psychiatric exam: PRESENT: appropriate affect Skin exam: PRESENT: dry, intact, warm. ABSENT: cyanosis, rash Results Laboratory Results: 07/09/16 05:58 07/09/16 05:58 07/09/16 07/09/16 05:58 05:58 WBC 4.4 RBC 3.03 L Hgb 9.8 L D Hct 27.5 L MCV 91 MCH 32.4 MCHC 35.7 RDW 14.5 H Plt Count 209 Seg Neutrophils % 55.2 Lymphocytes % 28.0 Monocytes % 14.7 H Eosinophils % 1.6 Basophils % 0.5 Absolute Neutrophils 2.4 Absolute Lymphocytes 1.2 Absolute Monocytes 0.7 Absolute Eosinophils 0.1 Absolute Basophils 0.0 Sodium 131.0 L Potassium 4.7 Chloride 97 L Carbon Dioxide 25 Anion Gap 9 BUN 25 H Creatinine 2.56 H Est GFR ( Amer) 32 L Est GFR (Non-Af Amer) 27 L Glucose 97 Calcium 8.4 Magnesium 1.6 Impressions: Acute Abdomen Series 07/08/16 15:54 IMPRESSION: NONSPECIFIC BOWEL GAS PATTERN. Numerous scattered small bowel loops with small air fluid levels. No distended large or small bowel loops. Possible developing ileus or enteritis, followup if persistent concern for developing obstruction. Assessment & Plan - Diagnosis (1) Acute renal failure Qualifiers: Acute renal failure type: unspecified Qualified Code(s): N17.9 - Acute kidney failure, unspecified Is this a current diagnosis for this admission?: YesPlan: Patient has had decreased by mouth intake as the most likely cause for his acute renal failure. The patient's creatinine has improved with IV fluids. We will continue IV fluids for at least an additional 24 hours. He also is on losartan and we will stop that. He has been getting chemotherapy. We'll have Dr. Liu evaluate to make certain that this is not related to any of his medications he is receiving for his chemotherapy. (2) Lung cancer Is this a current diagnosis for this admission?: YesPlan: Patient has been seen Dr. Liu for his chemotherapy. He received Neulasta last week. (3) Constipation Qualifiers: Constipation type: unspecified constipation type Qualified Code(s): K59.00 - Constipation, unspecified Is this a current diagnosis for this admission?: YesPlan: The patient received an enema in the emergency room. He has been taking oxycodone for pain which is the probable cause for this. It has resolved. (4) Hyponatremia Is this a current diagnosis for this admission?: YesPlan: Most likely related to his acute renal failure. We'll give IV fluids and monitor. - Time Time Spent with patient: 25-34 minutes - Inpatient Certification Medical Necessity: Need For IV Fluids
[2016-07-09] MEDS: FAMOTIDINE 20 MG TABLET PO SCH (09:51)
--- NOTE | 2016-07-09 18:52 | PDOC CONSULTATION ---
Consultation Consult Date: 07/09/16 Consult reason:: Small Cell Lung Cancer History of Present Illness Admission Date/PCP: 07/08/16 18:41 RITU MA MD History of Present Illness: VINICIUS VALLE is a 51 year old male who was recently diagnosed with small cell lung cancer and has recently started chemotherapy with VP16 and Cisplatin 06/27/16. The patient reports over the last week he's not felt well and has had decreased by mouth intake. He presented with lower abdominal pain and was found to be very constipated on x-rays. The patient reports he has had decreased urinary output. Been trying to drink enough fluids but has just not felt well with nausea and the abdominal pain. He has been taking some oxycodone because of the pain. He denies any fevers or chills. He denies any melena or bright blood per rectum. He denies any significant change in his weight. He is noted to have acute renal failure. He has been on losartan for his blood pressure for quite some time. He initially presented with a large irregular mass at the RUL and confluent with the right hilum measuring 5 x7 cm and MRI was negative. Bronch biopsy was c /w neuroendocrine with TTF-1 positive c/w Small Cell lung cancer. Past Medical History Cardiac Medical History: Reports: Hypertension Denies: Coronary Artery Disease, Myocardial Infarction Pulmonary Medical History: Reports: Pneumonia - 2016 Denies: Asthma, Bronchitis, Chronic Obstructive Pulmonary Disease (COPD), Tuberculosis EENT Medical History: Reports: None Neurological Medical History: Reports: None Denies: Seizures Endocrine Medical History: Reports: None Renal/ Medical History: Reports: None Malignancy Medical History: Reports: Lung Cancer GI Medical History: Reports: None Musculoskeltal Medical History: Denies: Arthritis Hematology: Reports: None Infectious Medical History: Reports: None Past Surgical History Past Surgical History: Reports: Orthopedic Surgery - Left wrist surgery, Other - History of surgery for testicular torsion 40 years ago Denies: Pacemaker Social History Lives with: Family Smoking Status: Former Smoker Frequency of Alcohol Use: None Hx Recreational Drug Use: No Drugs: None Hx Prescription Drug Abuse: No - Advance Directive Resuscitation Status: Full Code Family History Family History: None Parental Family History Reviewed: Yes Children Family History Reviewed: Yes Sibling(s) Family History Reviewed.: Yes Medication/Allergy Home Medications: Losartan Potassium 50 mg PO DAILY 05/31/16 Allergies/Adverse Reactions: cat dander Allergy (Unknown, Unverified 07/08/16 19:49) Facial swelling pollen extracts Allergy (Unknown, Unverified 07/08/16 19:50) Facial swelling POLLEN Allergy (Unknown, Uncoded 07/08/16 19:50) Facial swelling Review of Systems Constitutional: PRESENT: as per HPI Gastrointestinal: PRESENT: constipation, nausea Hematologic/Lymphatic: PRESENT: as per HPI Physical Exam Vital Signs: Temp Pulse Resp BP Pulse Ox 99.2 F 78 20 125/69 97 07/09/16 16:56 07/09/16 16:56 07/09/16 16:56 07/09/16 16:56 07/09/16 16:56 Intake & Output 07/08/16 07/09/16 07/10/16 06:59 06:59 06:59 Intake Total 340 937 Balance 340 937 Weight 89.1 kg General appearance: PRESENT: no acute distress Head exam: PRESENT: atraumatic, normocephalic Eye exam: PRESENT: EOMI, PERRLA Ear exam: PRESENT: normal external ear exam Mouth exam: PRESENT: moist, tongue midline Respiratory exam: PRESENT: clear to auscultation patricia, unlabored Cardiovascular exam: PRESENT: RRR GI/Abdominal exam: PRESENT: normal bowel sounds, soft Neurological exam: PRESENT: alert, awake, oriented to person, oriented to place , oriented to time, oriented to situation, CN II-XII grossly intact Results Laboratory Results: 07/09/16 05:58 07/09/16 05:58 07/09/16 07/09/16 05:58 05:58 WBC 4.4 RBC 3.03 L Hgb 9.8 L D Hct 27.5 L MCV 91 MCH 32.4 MCHC 35.7 RDW 14.5 H Plt Count 209 Seg Neutrophils % 55.2 Lymphocytes % 28.0 Monocytes % 14.7 H Eosinophils % 1.6 Basophils % 0.5 Absolute Neutrophils 2.4 Absolute Lymphocytes 1.2 Absolute Monocytes 0.7 Absolute Eosinophils 0.1 Absolute Basophils 0.0 Sodium 131.0 L Potassium 4.7 Chloride 97 L Carbon Dioxide 25 Anion Gap 9 BUN 25 H Creatinine 2.56 H Est GFR ( Amer) 32 L Est GFR (Non-Af Amer) 27 L Glucose 97 Calcium 8.4 Magnesium 1.6 Impressions: Acute Abdomen Series 07/08/16 15:54 IMPRESSION: NONSPECIFIC BOWEL GAS PATTERN. Numerous scattered small bowel loops with small air fluid levels. No distended large or small bowel loops. Possible developing ileus or enteritis, followup if persistent concern for developing obstruction. Assessment & Plan - Diagnosis (1) Acute renal failure Qualifiers: Acute renal failure type: unspecified Qualified Code(s): N17.9 - Acute kidney failure, unspecified Is this a current diagnosis for this admission?: YesPlan: Likely secondary to dehydration and Cisplatin. Will have to reconsider and change to Carboplatin if doesn't get the full recovery. (2) Constipation Qualifiers: Constipation type: unspecified constipation type Qualified Code(s): K59.00 - Constipation, unspecified Is this a current diagnosis for this admission?: YesPlan: Bowel regimen (3) Lung cancer Qualifiers: Qualified Code(s): C34.11 - Malignant neoplasm of upper lobe, right bronchus or lung Is this a current diagnosis for this admission?: YesPlan: Resume treatment when recovered and continue hydration and possible manitol - Time Time Spent: 50 to 70 Minutes Critical Time spent with patient: 15-24 minutes - Inpatient Certification Medical Necessity: Need For IV Fluids
[2016-07-10] MEDS: NORMAL SALINE 1000 ML 1,000 ML IV PRN ×3 (04:02→16:03)
[2016-07-10 06:00] LABS: ABSOLUTE EOSINOPHILS # (AUTO) 0.1 10^3/uL (0.0-0.6); ABSOLUTE LYMPHOCYTES (AUTO) 1.1 10^3/uL (0.5-4.7); ABSOLUTE MONOCYTES (AUTO) 0.6 10^3/uL (0.1-1.4); ABSOLUTE NEUT (AUTO) 2.2 10^3/uL (1.7-8.2); BASOPHILS % (AUTO) 0.5 % (0-2); EOSINOPHILS % (AUTO) 1.6 % (0-6); HEMATOCRIT 28.7 % (37.9-51.0); HEMOGLOBIN 10.1 g/dL (13.5-17.0); HGB HCT DIFFERENCE 1.6; LYMPHOCYTES % (AUTO) 27.6 % (13-45); MEAN CORPUSCULAR VOLUME 91 fl (80-97); MONOCYTES % (AUTO) 15.8 % (3-13); RED BLOOD COUNT 3.14 10^6/uL (4.35-5.55); RED CELL DISTRIBUTION WIDTH 14.5 % (11.5-14.0); SEGMENTED NEUTROPHILS % (AUTO) 54.5 % (42-78)
[2016-07-10 06:14] LABS: ANION GAP 7 (5-19); BLOOD UREA NITROGEN 21 mg/dL (7-20); CALCIUM 8.6 mg/dL (8.4-10.2); CARBON DIOXIDE 25 mmol/L (22-30); CHLORIDE 105 mmol/L (98-107); CREATININE RESULT 1.81 mg/dL (0.52-1.25); GLUCOSE 100 mg/dL (75-110); POTASSIUM 4.8 mmol/L (3.6-5.0)
[2016-07-10] MEDS: FAMOTIDINE 20 MG TABLET PO SCH (08:49)
--- NOTE | 2016-07-10 09:04 | PDOC PROGRESS REPORT ---
Subjective Progress Note for:: 07/10/16 Subjective:: Feeling better, counts are good. Physical Exam Vital Signs: Temp Pulse Resp BP Pulse Ox 98.5 F 83 19 126/69 H 94 07/10/16 08:00 07/10/16 08:00 07/10/16 08:00 07/10/16 08:00 07/10/16 08:00 Intake & Output 07/09/16 07/10/16 07/11/16 06:59 06:59 06:59 Intake Total 340 3847 Balance 340 3847 Weight 89.1 kg 92.9 kg General appearance: PRESENT: no acute distress Head exam: PRESENT: atraumatic, normocephalic Eye exam: PRESENT: EOMI, PERRLA Ear exam: PRESENT: normal external ear exam Respiratory exam: PRESENT: clear to auscultation patricia, unlabored Cardiovascular exam: PRESENT: RRR GI/Abdominal exam: PRESENT: normal bowel sounds, soft Neurological exam: PRESENT: alert, oriented to person, oriented to place, oriented to time, oriented to situation, CN II-XII grossly intact Psychiatric exam: PRESENT: appropriate affect Results Laboratory Results: 07/10/16 05:19 07/10/16 05:19 07/10/16 07/10/16 05:19 05:19 WBC 4.0 RBC 3.14 L Hgb 10.1 L Hct 28.7 L MCV 91 MCH 32.0 MCHC 35.0 RDW 14.5 H Plt Count 190 Seg Neutrophils % 54.5 Lymphocytes % 27.6 Monocytes % 15.8 H Eosinophils % 1.6 Basophils % 0.5 Absolute Neutrophils 2.2 Absolute Lymphocytes 1.1 Absolute Monocytes 0.6 Absolute Eosinophils 0.1 Absolute Basophils 0.0 Sodium 137.0 Potassium 4.8 Chloride 105 Carbon Dioxide 25 Anion Gap 7 BUN 21 H Creatinine 1.81 H Est GFR ( Amer) 48 L Est GFR (Non-Af Amer) 40 L Glucose 100 Calcium 8.6 Impressions: Acute Abdomen Series 07/08/16 15:54 IMPRESSION: NONSPECIFIC BOWEL GAS PATTERN. Numerous scattered small bowel loops with small air fluid levels. No distended large or small bowel loops. Possible developing ileus or enteritis, followup if persistent concern for developing obstruction. Assessment & Plan - Diagnosis (1) Acute renal failure Qualifiers: Acute renal failure type: unspecified Qualified Code(s): N17.9 - Acute kidney failure, unspecified Is this a current diagnosis for this admission?: YesPlan: Improving renal function and continued improved intake. (2) Constipation Qualifiers: Constipation type: unspecified constipation type Qualified Code(s): K59.00 - Constipation, unspecified Is this a current diagnosis for this admission?: Yes (3) Lung cancer Qualifiers: Qualified Code(s): C34.11 - Malignant neoplasm of upper lobe, right bronchus or lung Is this a current diagnosis for this admission?: YesPlan: Will resume therapy when he has recovered his renal function and when time. Discussed with Dr. Polanco. - Time Time Spent with patient: 25-34 minutes Critical Time spent with patient: 15-24 minutes Anticipated discharge: Home Within: within 24 hours
--- NOTE | 2016-07-10 10:58 | PDOC PROGRESS REPORT ---
Subjective Progress Note for:: 07/10/16 Subjective:: Complains of constipation. Physical Exam Vital Signs: Temp Pulse Resp BP Pulse Ox 98.5 F 83 19 126/69 H 94 07/10/16 08:00 07/10/16 08:00 07/10/16 08:00 07/10/16 08:00 07/10/16 08:00 Intake & Output 07/09/16 07/10/16 07/11/16 06:59 06:59 06:59 Intake Total 340 3847 Balance 340 3847 Weight 89.1 kg 92.9 kg General appearance: PRESENT: no acute distress Eye exam: PRESENT: conjunctiva pink. ABSENT: scleral icterus Mouth exam: PRESENT: moist, tongue midline Neck exam: ABSENT: carotid bruit, JVD, lymphadenopathy, thyromegaly Respiratory exam: PRESENT: clear to auscultation patricia. ABSENT: rales, rhonchi, wheezes Cardiovascular exam: PRESENT: RRR. ABSENT: diastolic murmur, rubs, systolic murmur GI/Abdominal exam: PRESENT: normal bowel sounds, soft. ABSENT: distended, guarding, mass, organolmegaly, rebound, tenderness Extremities exam: ABSENT: calf tenderness, clubbing, pedal edema Neurological exam: PRESENT: alert, awake, oriented to person, oriented to place , oriented to time, oriented to situation, CN II-XII grossly intact. ABSENT: motor sensory deficit Psychiatric exam: PRESENT: appropriate affect, normal mood Skin exam: PRESENT: dry, intact, warm. ABSENT: cyanosis, rash Results Laboratory Results: 07/10/16 05:19 07/10/16 05:19 07/10/16 07/10/16 05:19 05:19 WBC 4.0 RBC 3.14 L Hgb 10.1 L Hct 28.7 L MCV 91 MCH 32.0 MCHC 35.0 RDW 14.5 H Plt Count 190 Seg Neutrophils % 54.5 Lymphocytes % 27.6 Monocytes % 15.8 H Eosinophils % 1.6 Basophils % 0.5 Absolute Neutrophils 2.2 Absolute Lymphocytes 1.1 Absolute Monocytes 0.6 Absolute Eosinophils 0.1 Absolute Basophils 0.0 Sodium 137.0 Potassium 4.8 Chloride 105 Carbon Dioxide 25 Anion Gap 7 BUN 21 H Creatinine 1.81 H Est GFR ( Amer) 48 L Est GFR (Non-Af Amer) 40 L Glucose 100 Calcium 8.6 Impressions: Acute Abdomen Series 07/08/16 15:54 IMPRESSION: NONSPECIFIC BOWEL GAS PATTERN. Numerous scattered small bowel loops with small air fluid levels. No distended large or small bowel loops. Possible developing ileus or enteritis, followup if persistent concern for developing obstruction. Assessment & Plan - Diagnosis (1) Acute renal failure Qualifiers: Acute renal failure type: unspecified Qualified Code(s): N17.9 - Acute kidney failure, unspecified Is this a current diagnosis for this admission?: YesPlan: Patient has had decreased by mouth intake as the most likely cause for his acute renal failure. The patient's creatinine has improved with IV fluids. We' ll continue with IV fluids as his creatinine has not yet returned to normal. (2) Lung cancer Qualifiers: Qualified Code(s): C34.11 - Malignant neoplasm of upper lobe, right bronchus or lung Is this a current diagnosis for this admission?: YesPlan: Patient has been seen Dr. Liu for his chemotherapy. He received Neulasta last week. (3) Constipation Qualifiers: Constipation type: unspecified constipation type Qualified Code(s): K59.00 - Constipation, unspecified Is this a current diagnosis for this admission?: YesPlan: We'll start lactulose. (4) Hyponatremia Is this a current diagnosis for this admission?: YesPlan: Most likely related to his acute renal failure. We'll give IV fluids and monitor. - Time Time Spent with patient: 25-34 minutes - Inpatient Certification Medical Necessity: Need For IV Fluids
[2016-07-10] MEDS: LACTULOSE SYRUP 20 GM/30 ML UDCUP PO SCH ×2 (11:10→17:18)
[2016-07-11] MEDS: LACTULOSE SYRUP 20 GM/30 ML UDCUP PO SCH ×2 (01:02→05:39)
[2016-07-11 04:22] LABS: ABSOLUTE EOSINOPHILS # (AUTO) 0.1 10^3/uL (0.0-0.6); ABSOLUTE LYMPHOCYTES (AUTO) 1.3 10^3/uL (0.5-4.7); ABSOLUTE MONOCYTES (AUTO) 0.7 10^3/uL (0.1-1.4); ABSOLUTE NEUT (AUTO) 3.4 10^3/uL (1.7-8.2); BASOPHILS % (AUTO) 0.6 % (0-2); EOSINOPHILS % (AUTO) 1.1 % (0-6); HEMATOCRIT 26.8 % (37.9-51.0); HEMOGLOBIN 9.2 g/dL (13.5-17.0); HGB HCT DIFFERENCE 0.8; LYMPHOCYTES % (AUTO) 23.3 % (13-45); MEAN CORPUSCULAR HEMOGLOBIN 31.6 pg (27.0-33.4); MEAN CORPUSCULAR HGB CONC 34.5 g/dL (32.0-36.0); MEAN CORPUSCULAR VOLUME 92 fl (80-97); MONOCYTES % (AUTO) 13.1 % (3-13); RED BLOOD COUNT 2.92 10^6/uL (4.35-5.55); RED CELL DISTRIBUTION WIDTH 14.5 % (11.5-14.0); SEGMENTED NEUTROPHILS % (AUTO) 61.9 % (42-78); WHITE BLOOD COUNT 5.5 10^3/uL (4.0-10.5)
[2016-07-11 04:33] LABS: ANION GAP 8 (5-19); BLOOD UREA NITROGEN 16 mg/dL (7-20); CALCIUM 7.9 mg/dL (8.4-10.2); CARBON DIOXIDE 24 mmol/L (22-30); CHLORIDE 107 mmol/L (98-107); CREATININE RESULT 1.42 mg/dL (0.52-1.25); GLUCOSE 120 mg/dL (75-110); POTASSIUM 4.2 mmol/L (3.6-5.0); SODIUM 139.4 mmol/L (137-145)
[2016-07-11 08:35] VITALS: BP 156/68
[2016-07-11] MEDS: FAMOTIDINE 20 MG TABLET PO SCH (09:05)
--- NOTE | 2016-07-11 10:04 | PDOC DISCHARGE SUMMARY ---
General - Admit/Disc Date/PCP Admission Date/Primary Care Provider: 07/08/16 18:41 RITU MA MD Discharge Date: 07/11/16 - Discharge Diagnosis (1) Acute renal failure Is this a current diagnosis for this admission?: YesSummary: Secondary to dehydration. (2) Lung cancer Is this a current diagnosis for this admission?: YesSummary: Small cell lung cancer followed by Dr. Carmenza Liu (3) Constipation Is this a current diagnosis for this admission?: Yes (4) Hyponatremia Is this a current diagnosis for this admission?: YesSummary: Most likely secondary to lung cancer - Additional Information Resuscitation Status: Full Code Discharge Diet: As Tolerated Discharge Activity: Activity As Tolerated Home Medications: Losartan Potassium 50 mg PO DAILY 05/31/16 Lactulose [Cephulac Syrup 20 gm/30 ml Udcup] 20 gm PO Q6 #16 oz 07/11/16 History of Present Illness History of Present Illness: VINICIUS VALLE is a 51 year old male who was recently diagnosed with lung cancer and has recently started chemotherapy. The patient reports over the last week she's not felt well and has had decreased by mouth intake. He presented with lower abdominal pain and was found to be very constipated on x- rays. The patient reports he has had decreased urinary output. Been trying to drink enough fluids but has just not felt well with nausea and the abdominal pain. Patient did receive last last week. He has been taking some oxycodone because of the pain. He denies any fevers or chills. He denies any melena or bright blood per rectum. He denies any significant change in his weight. He is noted to have acute renal failure. He has been on losartan for his blood pressure for quite some time. Hospital Course Hospital Course: 51-year-old gentleman who presented with acute renal failure secondary to dehydration. Patient has been getting chemotherapy for his lung cancer. Patient was started on IV fluids and he had improvement in his renal function. His creatinine was down to 1.4 on the day of discharge. He was tolerating by mouth well and he had been evaluated by Dr. Liu during this hospitalization. Patient's losartan was initially stopped because of the possibility this may be contributing to his renal failure however it appears to be just simple dehydration and he's restarted on his losartan. He is given lactulose to use when necessary for his constipation. Physical Exam Vital Signs: Temp Pulse Resp BP Pulse Ox 98.1 F 58 L 17 156/68 H 97 07/11/16 08:47 07/11/16 08:47 07/11/16 08:47 07/11/16 08:47 07/11/16 08:48 Intake & Output 07/10/16 07/11/16 07/12/16 06:59 06:59 06:59 Intake Total 3847 5205 Balance 3847 5205 Weight 92.9 kg General appearance: PRESENT: no acute distress Eye exam: PRESENT: conjunctiva pink. ABSENT: scleral icterus Mouth exam: PRESENT: moist, tongue midline Neck exam: ABSENT: JVD Respiratory exam: PRESENT: clear to auscultation patricia. ABSENT: rales, rhonchi, wheezes Cardiovascular exam: PRESENT: RRR. ABSENT: diastolic murmur, rubs, systolic murmur GI/Abdominal exam: PRESENT: normal bowel sounds, soft. ABSENT: distended, guarding, mass, organolmegaly, rebound, tenderness Extremities exam: ABSENT: calf tenderness, clubbing, pedal edema Neurological exam: PRESENT: alert, awake, oriented to person, oriented to place , oriented to time, oriented to situation, CN II-XII grossly intact. ABSENT: motor sensory deficit Psychiatric exam: PRESENT: appropriate affect Skin exam: PRESENT: dry, intact, warm. ABSENT: cyanosis, rash Results Laboratory Results: 07/11/16 04:06 07/11/16 04:06 07/11/16 07/11/16 04:06 04:06 WBC 5.5 RBC 2.92 L Hgb 9.2 L Hct 26.8 L MCV 92 MCH 31.6 MCHC 34.5 RDW 14.5 H Plt Count 208 Seg Neutrophils % 61.9 Lymphocytes % 23.3 Monocytes % 13.1 H Eosinophils % 1.1 Basophils % 0.6 Absolute Neutrophils 3.4 Absolute Lymphocytes 1.3 Absolute Monocytes 0.7 Absolute Eosinophils 0.1 Absolute Basophils 0.0 Sodium 139.4 Potassium 4.2 Chloride 107 Carbon Dioxide 24 Anion Gap 8 BUN 16 Creatinine 1.42 H Est GFR ( Amer) > 60 Est GFR (Non-Af Amer) 52 L Glucose 120 H Calcium 7.9 L Impressions: Acute Abdomen Series 07/08/16 15:54 IMPRESSION: NONSPECIFIC BOWEL GAS PATTERN. Numerous scattered small bowel loops with small air fluid levels. No distended large or small bowel loops. Possible developing ileus or enteritis, followup if persistent concern for developing obstruction. Qualifiers PATEINT BEING DISCHARGED WITH ANY OF THE FOLLOWING DIAGNOSIS?: No Plan Discharge Plan: Patient is discharged home in stable condition. Will follow with Dr. Carmenza Liu in 1-2 weeks. Time Spent: Less than 30 Minutes
== END 2016-07-11 09:21 | disposition home or self-care (01) | DRG 683 ==
LOC: ER 15:21 → EH 18:41 → UNDOADMIN 18:52 → EH 18:52 → 5 21:45
PROVIDERS: ADMIT Internal Medicine; ATTEND Internal Medicine
DX: N17.9 Acute kidney failure, unspecified (principal); E87.1 Hypo-osmolality and hyponatremia; C34.11 Malignant neoplasm of upper lobe, right bronchus or lung; D64.9 Anemia, unspecified; K59.00 Constipation, unspecified; R10.9 Unspecified abdominal pain; I10 Essential (primary) hypertension; Z87.891 Personal history of nicotine dependence; Z92.21 Personal history of antineoplastic chemotherapy
CPT/HCPCS: 36415; 74022; 80048; 80053; 83735; 85025; 96360; 99285; J3490; J7030

== ENCOUNTER 2016-07-17 12:23 | Outpatient (CLI) | payer MEDICAID, OTHER ==
[~2016-07-17 12:23] MED LIST changes: +CISPLATIN IV PRN; +ETOPOSIDE IV PRN; +FOSAPREPITANT DIMEGLUMINE 150 MG in NORMAL SALINE 150 ML IV PRN; +FUROSEMIDE INJ/PF 20 MG/2 ML SDV IV PRN; +NORMAL SALINE 1000 ML 1,000 ML IV PRN; +NORMAL SALINE IV PRN; +ONDANSETRON HCL/PF 16 MG, DEXAMETHASONE SOD PHOSPHATE 10 MG in NORMAL SALINE 50 ML IV PRN; -PEGFILGRASTIM INJ 6 MG/0.6 ML DISP.SYRIN SUBCUT PRN
[2016-07-17] MEDS ORDERED: MANNITOL IV PRN (13:16)
[2016-07-17] MEDS ORDERED: CONTAINER EMPTY IV PRN (13:16)
[2016-07-17 13:50] VITALS: BP 134/85
[2016-07-17] MEDS ORDERED: DIPHENHYDRAMINE HCL 50 MG/ML VIAL ONE (14:49)
== END 2016-07-17 18:43 | disposition home or self-care (01) ==
LOC: II 12:23 → 5TH 12:23 → II 18:43
PROVIDERS: ATTEND Specialist
PROC: 3E03305 Introduction of Other Antineoplastic into Peripheral Vein, Percutaneous Approach (ICD-10-PCS; principal; 2016-07-17)
PROC: 3E033GC Introduction of Other Therapeutic Substance into Peripheral Vein, Percutaneous Approach (ICD-10-PCS; 2016-07-17)
DX: Z51.11 Encounter for antineoplastic chemotherapy (principal); C34.90 Malignant neoplasm of unspecified part of unspecified bronchus or lung; D70.1 Agranulocytosis secondary to cancer chemotherapy
CPT/HCPCS: 96413; 96367; 96375; 96360; 96361; 96417; J3490; J1940; J9181; J2150; J2405; J7040; J1100; J1453; J1200; J9060

== ENCOUNTER → 2016-07-18 | Outpatient (CLI) | payer MEDICAID, OTHER ==
[~2016-07-18] MED LIST changes: -CISPLATIN IV PRN; +DEXAMETHASONE SOD PHOSPHATE 10 MG in NORMAL SALINE 50 ML IV PRN; -FOSAPREPITANT DIMEGLUMINE 150 MG in NORMAL SALINE 150 ML IV PRN; -FUROSEMIDE INJ/PF 20 MG/2 ML SDV IV PRN; -NORMAL SALINE 1000 ML 1,000 ML IV PRN; +NORMAL SALINE 250 ML IV PRN; -ONDANSETRON HCL/PF 16 MG, DEXAMETHASONE SOD PHOSPHATE 10 MG in NORMAL SALINE 50 ML IV PRN
[2016-07-20 11:21] LABS: CREATININE RESULT 1.19 mg/dL (0.52-1.25)
== END ==
LOC: II 08:05
PROVIDERS: ATTEND Specialist
PROC: 3E03305 Introduction of Other Antineoplastic into Peripheral Vein, Percutaneous Approach (ICD-10-PCS; principal; 2016-07-18)
PROC: 3E0333Z Introduction of Anti-inflammatory into Peripheral Vein, Percutaneous Approach (ICD-10-PCS; 2016-07-18)
DX: Z51.11 Encounter for antineoplastic chemotherapy (principal); C34.90 Malignant neoplasm of unspecified part of unspecified bronchus or lung; D70.1 Agranulocytosis secondary to cancer chemotherapy
CPT/HCPCS: 96413; 96415; 96367; 96374; 96360; 96361; 36415; 82565; J9181; J7040; J1100

== ENCOUNTER 2016-07-19 08:16 | Outpatient (CLI) | payer MEDICAID, OTHER ==
[2016-07-19 08:49] VITALS: BP 148/80
== END 2016-07-19 12:15 | disposition home or self-care (01) ==
LOC: 5TH 08:16 → II 08:16
PROVIDERS: ATTEND Specialist
PROC: 3E03305 Introduction of Other Antineoplastic into Peripheral Vein, Percutaneous Approach (ICD-10-PCS; principal; 2016-07-19)
PROC: 3E0333Z Introduction of Anti-inflammatory into Peripheral Vein, Percutaneous Approach (ICD-10-PCS; 2016-07-19)
DX: Z51.11 Encounter for antineoplastic chemotherapy (principal); C34.90 Malignant neoplasm of unspecified part of unspecified bronchus or lung; D70.1 Agranulocytosis secondary to cancer chemotherapy
CPT/HCPCS: 96413; 96367; J9181; J7040; J1100

== ENCOUNTER 2016-07-20 12:04 | Outpatient (CLI) | payer MEDICAID, OTHER ==
[~2016-07-20 12:04] MED LIST changes: -DEXAMETHASONE SOD PHOSPHATE 10 MG in NORMAL SALINE 50 ML IV PRN; -ETOPOSIDE IV PRN; -NORMAL SALINE 250 ML IV PRN; -NORMAL SALINE IV PRN; +PEGFILGRASTIM INJ 6 MG/0.6 ML DISP.SYRIN SUBCUT PRN
== END 2016-07-20 12:21 | disposition home or self-care (01) ==
LOC: II 12:04 → 5TH 12:10 → II 12:21
PROVIDERS: ATTEND Specialist
PROC: 3E013GC Introduction of Other Therapeutic Substance into Subcutaneous Tissue, Percutaneous Approach (ICD-10-PCS; principal; 2016-07-20)
DX: Z76.89 Persons encountering health services in other specified circumstances (principal); C34.90 Malignant neoplasm of unspecified part of unspecified bronchus or lung; D70.1 Agranulocytosis secondary to cancer chemotherapy
CPT/HCPCS: 96401; J2505

== ENCOUNTER 2016-07-30 16:32 | Emergency (ER) | payer MEDICAID, OTHER ==
[2016-07-30] MEDS ORDERED: DICYCLOMINE HCL INJ 20 MG/2 ML AMPULE IM ONE (17:46)
--- NOTE | 2016-07-30 17:49 | ER Document Report ---
ED General - General Chief Complaint: Constipation Stated Complaint: ABDOMINAL PAIN Time Seen by Provider: 07/30/16 17:28 Mode of Arrival: Ambulatory Information source: Patient Notes: 51-year-old male history of lung cancer who last received chemotherapy 2 weeks ago presents with complaints of abdominal cramping sensation with constipation. He notes he gets constipated after chemotherapy. This has occurred multiple times in the past. Denies any fevers or chills denies any nausea vomiting shortness of breath or chest pain TRAVEL OUTSIDE OF THE [place] IN LAST 30 DAYS: No - HPI Onset: Other - 3 day duration of no bowel movement Onset/Duration: Persistent Quality of pain: Cramping Severity: Mild Pain Level: 1 Associated symptoms: None Exacerbated by: Denies Relieved by: Denies Similar symptoms previously: Yes Recently seen / treated by doctor: Yes - Related Data Allergies/Adverse Reactions: cat dander Allergy (Unknown, Verified 07/30/16 17:41) Facial swelling pollen extracts Allergy (Unknown, Verified 07/30/16 17:41) Facial swelling POLLEN Allergy (Unknown, Uncoded 07/30/16 17:41) Facial swelling Past Medical History - Social History Smoking Status: Never Smoker Cigarette use (# per day): No Chew tobacco use (# tins/day): No Smoking Education Provided: No Family History: None - Past Medical History Cardiac Medical History: Reports: Hx Hypertension Denies: Hx Coronary Artery Disease, Hx Heart Attack Pulmonary Medical History: Reports: Hx Pneumonia - 2016 Denies: Hx Asthma, Hx Bronchitis, Hx COPD, Hx Tuberculosis Neurological Medical History: Denies: Hx Cerebrovascular Accident, Hx Seizures Renal/ Medical History: Denies: Hx Peritoneal Dialysis Malignancy Medical History: Reports Hx Lung Cancer Musculoskeltal Medical History: Denies Hx Arthritis Past Surgical History: Reports: Hx Orthopedic Surgery - Left wrist surgery, Other - History of surgery for testicular torsion 40 years ago. Denies: Hx Pacemaker - Immunizations Hx Diphtheria, Pertussis, Tetanus Vaccination: Yes Hx Pneumococcal Vaccination: 06/07/11 Review of Systems - Review of Systems Notes: PHYSICAL EXAMINATION: GENERAL: Well-appearing, well-nourished and in no acute distress. HEAD: Atraumatic, normocephalic. EYES: Pupils equal round and reactive to light, extraocular movements intact, sclera anicteric, conjunctiva are normal. ENT: Nares patent, oropharynx clear without exudates. Moist mucous membranes. NECK: Normal range of motion, supple without lymphadenopathy LUNGS: Breath sounds clear to auscultation bilaterally and equal. No wheezes rales or rhonchi. HEART: Regular rate and rhythm without murmurs ABDOMEN: Soft, nontender, nondistended abdomen. No guarding, no rebound. No masses appreciated. Musculoskeletal: Normal range of motion, no pitting or edema. No cyanosis. NEUROLOGICAL: Cranial nerves grossly intact. Normal speech, normal gait. Normal sensory, motor exams PSYCH: Normal mood, normal affect. SKIN: Warm, Dry, normal turgor, no rashes or lesions noted. Physical Exam - Vital signs Vitals: Temp Pulse Resp BP Pulse Ox 98.7 F 142 H 23 H 118/87 H 100 07/30/16 16:37 07/30/16 16:37 07/30/16 16:37 07/30/16 16:37 07/30/16 16:37 Course - Re-evaluation Re-evalutation: 07/30/16 17:47 His heart rate is 95 in the room, he explains that when the cramping occurs his heart rate goes up 07/30/16 20:38 Patient notes significant relief after enema. States he wishes to go home he feels 100% better. After performing a Medical Screening Examination, I estimate there is LOW risk for ACUTE APPENDICITIS, BOWEL OBSTRUCTION, ACUTE CHOLECYSTITIS, PERFORATED DIVERTICULITIS, INCARCERATED HERNIA, PANCREATITIS, or PERFORATED ULCER, thus I consider the discharge disposition reasonable. Also, there is no evidence or peritonitis, sepsis, or toxicity. I have reevaluated this patient multiple times and no significant life threatening changes are noted. The patient and I have discussed the diagnosis and risks, and we agree with discharging home with close follow-up with the understanding that symptoms and presentations can change. We also discussed returning to the Emergency Department immediately if new or worsening symptoms occur. We have discussed the symptoms which are most concerning (e.g., bloody stool, fever, changing or worsening pain, intractable vomiting - standard verbal up date) that necessitate immediate return. - Vital Signs Vital signs: Temp Pulse Resp BP Pulse Ox 98.7 F 142 H 15 118/87 H 100 07/30/16 16:37 07/30/16 16:37 07/30/16 17:35 07/30/16 16:37 07/30/16 16:37 - Diagnostic Test Radiology reviewed: Image reviewed, Reports reviewed - No acute abnormality Discharge - Discharge Clinical Impression: Constipation Qualifiers: Constipation type: unspecified constipation type Qualified Code(s): K59.00 - Constipation, unspecified Lung cancer Qualifiers: Qualified Code(s): C34.11 - Condition: Stable Disposition: HOME, SELF-CARE Instructions: Constipation ([facility]) Referrals: RITU MA MD [Primary Care Provider] - Follow up in 3-5 days
--- NOTE | 2016-07-30 19:43 | RADIOLOGY REPORT (SQ) ---
EXAM DESCRIPTION: ACUTE ABDOMEN SERIES COMPLETED DATE/TIME: 07/30/2016 6:08 pm REASON FOR STUDY: constipation psot chemo COMPARISON: 07/08/2016 in 06/07/2016 NUMBER OF VIEWS: Three views. TECHNIQUE: PA chest, supine abdomen and upright/decubitus abdomen radiographic images acquired. LIMITATIONS: None. FINDINGS: CHEST: Similar right upper lobe mass. FREE AIR: None. No abnormal gas collections. BOWEL GAS PATTERN: There are scattered small bowel loops with air fluid levels. Mild colonic gas. N o significant stool burden. No distended large or small bowel loops. CALCIFICATIONS: No suspicious calcifications. HARDWARE: None in the abdomen. SOFT TISSUES: No gross mass or suggestion of organomegaly. BONES: No acute fracture. No worrisome bone lesions. OTHER: No other significant finding. IMPRESSION: NONSPECIFIC BOWEL GAS PATTERN, similar to the prior study.No significant stool burden. Similar right upper lobe mass. TECHNICAL DOCUMENTATION: JOB ID: [id number] [employer]- All Rights Reserved
[2016-07-30 20:48] VITALS: BP 144/95
--- NOTE | 2016-07-30 21:13 | EKG REPORT ---
SEVERITY:- NORMAL ECG - SINUS RHYTHM : Confirmed by: William Desir 30-Jul-2016 21:12:45
== END 2016-07-30 20:50 | disposition home or self-care (01) ==
LOC: ER 16:32
DX: K59.00 Constipation, unspecified (principal); C34.11 Malignant neoplasm of upper lobe, right bronchus or lung; R10.9 Unspecified abdominal pain
CPT/HCPCS: 93005; 99283; 96372; 74022; 93010; J0500

== ENCOUNTER 2016-08-07 10:16 | Outpatient (CLI) | payer MEDICAID, OTHER ==
[~2016-08-07 10:16] MED LIST changes: +CARBOPLATIN IV PRN; +DEXAMETHASONE SOD PHOSPHATE IV PRN; +ETOPOSIDE IV PRN; +NORMAL SALINE 250 ML IV PRN; +NORMAL SALINE IV PRN; +ONDANSETRON HCL IV PRN; -PEGFILGRASTIM INJ 6 MG/0.6 ML DISP.SYRIN SUBCUT PRN
[2016-08-07 10:29] VITALS: BP 145/100
== END 2016-08-07 13:36 | disposition home or self-care (01) ==
LOC: II 10:16 → 5TH 10:20 → II 13:36
PROVIDERS: ATTEND Specialist
DX: Z51.11 Encounter for antineoplastic chemotherapy (principal); C34.90 Malignant neoplasm of unspecified part of unspecified bronchus or lung
CPT/HCPCS: 96413; 96415; 96367; J9045 ×2; J9181; J2405; J7050; J7040; J1100; 96417

== ENCOUNTER 2016-08-08 08:57 | Outpatient (CLI) | payer MEDICAID, OTHER ==
[~2016-08-08 08:57] MED LIST changes: -CARBOPLATIN IV PRN; +DEXAMETHASONE SOD PHOSPHATE 10 MG in NORMAL SALINE 100 ML IV PRN; -DEXAMETHASONE SOD PHOSPHATE IV PRN; -ONDANSETRON HCL IV PRN
[2016-08-08 09:15] VITALS: BP 146/86
== END 2016-08-08 11:32 | disposition home or self-care (01) ==
LOC: II 08:57 → 5TH 08:58 → II 11:32
PROVIDERS: ATTEND Specialist
PROC: 3E03305 Introduction of Other Antineoplastic into Peripheral Vein, Percutaneous Approach (ICD-10-PCS; principal; 2016-08-08)
PROC: 3E0333Z Introduction of Anti-inflammatory into Peripheral Vein, Percutaneous Approach (ICD-10-PCS; 2016-08-08)
DX: Z51.11 Encounter for antineoplastic chemotherapy (principal); C34.90 Malignant neoplasm of unspecified part of unspecified bronchus or lung
CPT/HCPCS: 96413; 96367; J9181; J7040; J1100; 96375

== ENCOUNTER 2016-08-09 08:46 | Outpatient (CLI) | payer MEDICAID, OTHER ==
[2016-08-09 09:42] VITALS: BP 131/77
== END 2016-08-09 11:41 | disposition home or self-care (01) ==
LOC: II 08:46 → 5TH 08:47 → II 11:41
PROVIDERS: ATTEND Specialist
PROC: 3E03305 Introduction of Other Antineoplastic into Peripheral Vein, Percutaneous Approach (ICD-10-PCS; principal; 2016-08-09)
PROC: 3E0333Z Introduction of Anti-inflammatory into Peripheral Vein, Percutaneous Approach (ICD-10-PCS; 2016-08-09)
DX: Z51.11 Encounter for antineoplastic chemotherapy (principal); C34.90 Malignant neoplasm of unspecified part of unspecified bronchus or lung
CPT/HCPCS: 96413; 96375; J9181; J7040; J1100; 96367

== ENCOUNTER 2016-08-10 11:32 | Outpatient (CLI) | payer MEDICAID, OTHER ==
[~2016-08-10 11:32] MED LIST changes: -DEXAMETHASONE SOD PHOSPHATE 10 MG in NORMAL SALINE 100 ML IV PRN; -ETOPOSIDE IV PRN; -NORMAL SALINE 250 ML IV PRN; -NORMAL SALINE IV PRN; +PEGFILGRASTIM INJ 6 MG/0.6 ML DISP.SYRIN SUBCUT PRN
== END 2016-08-10 11:52 | disposition home or self-care (01) ==
LOC: II 11:32 → 5TH 11:38 → II 11:52
PROVIDERS: ATTEND Specialist
PROC: 3E013GC Introduction of Other Therapeutic Substance into Subcutaneous Tissue, Percutaneous Approach (ICD-10-PCS; principal; 2016-08-10)
DX: Z76.89 Persons encountering health services in other specified circumstances (principal); C34.90 Malignant neoplasm of unspecified part of unspecified bronchus or lung; D70.1 Agranulocytosis secondary to cancer chemotherapy
CPT/HCPCS: 96372; J2505

== ENCOUNTER → 2016-08-27 | Outpatient (CLI) | payer MEDICAID, OTHER ==
--- NOTE | 2016-08-27 17:28 | RADIOLOGY REPORT (SQ) ---
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 Images reviewed with lung, soft tissue and bone windows. Reconstructed coronal and sagittal MPR images reviewed. All images stored on PACS. All CT scanners at this facility use dose modulation, iterative reconstruction, and/or weight based d osing when appropriate to reduce radiation dose to as low as reasonably achievable (ALARA). [facility]: Dose Right [facility]: CareDose [facility]: Dose Right [facility]: Teradose 4D [facility]: [employer] CONTRAST TYPE AND DOSE: contrast/concentration: Isovue 370.00 mg/ml; Total Contrast Delivered: 80.0 ml; Total Saline Delivered: 55.0 ml RENAL FUNCTION: Creatinine 1 BUN 15 RADIATION DOSE: Up-to-date CT equipment and radiation dose reduction techniques were employed. CTDIv ol: 10.6 mGy. DLP: 479 mGy-cm. . LIMITATIONS: None. FINDINGS: LUNGS AND PLEURA: Once again there is a large right upper lobe lung mass that is contiguou s with the hilum. On image 45 series 4 this shows a maximum diameter of 65 mm transversely and 40 mm in AP diameter. On the analogous image on the prior study this measures 74 x 52 mm, suggesting that it is smaller. There are central calcifications within this mass. No additional pulmonary masses a re present. There are no infiltrates or effusions. HILAR AND MEDIASTINAL STRUCTURES: The large right upper lobe lung mass is contiguous with the right h ilum. No significant hilar or mediastinal adenopathy is present. HEART AND VASCULAR STRUCTURES: No aneurysm or dissection. No central pulmonary emboli. No pericardi al effusion. HARDWARE: None in the chest. UPPER ABDOMEN: No significant findings. Limited exam. THYROID AND OTHER SOFT TISSUES: No masses. No adenopathy. BONES: No significant finding. OTHER: No other significant finding. IMPRESSION: The right upper lobe lung mass is smaller than on the prior study. No metastases are se en. TECHNICAL DOCUMENTATION: JOB ID: [id number] Quality ID # [id number]: Final reports with documentation of one or more dose reduction techniques (e.g., Au tomated exposure control, adjustment of the mA and/or kV according to patient size, use of iterative reconstruction technique) 2010 [employer] All Rights Reserved
== END ==
LOC: RAD 14:03
PROVIDERS: ATTEND Specialist
DX: C34.90 Malignant neoplasm of unspecified part of unspecified bronchus or lung (principal)
CPT/HCPCS: 71260

== ENCOUNTER → 2016-09-09 | Outpatient (CLI) | payer MEDICAID, OTHER ==
--- NOTE | 2016-09-10 11:02 | RADIOLOGY REPORT (SQ) ---
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 CT of the chest with contrast 08/27/2016. RADIONUCLIDE AND DOSE: 12.19 mCi F18 FDG The route of agent administration: Intravenous FASTING BLOOD SUGAR: 89 mg/dl CONTRAST TYPE AND DOSE: No CT contrast given. TECHNIQUE: Blood glucose level was verified. Above dose of FDG was injected intravenously. 2-D seg mented attenuation correction images were obtained from the base of the skull to the midthighs. Nonc ontrast CT images were obtained for attenuation correction and fusion with emission images. CT image s were performed without oral or intravenous contrast and are not sensitive for parenchymal lesions. A series of overlapping emission PET images were obtained. [facility] by the radiologist. Images stored on PACS. LIMITATIONS: None. FINDINGS: HEAD AND NECK: No areas of abnormal metabolic activity in the soft tissues of the head and neck. CHEST: Significant decrease in size of the previously noted mass in the right upper lobe. Currently measures 3.9 by 3.7 cm. Paratracheal node is 1.5 cm. SUV 4.18 cm. ABDOMEN AND PELVIS: No areas of abnormal metabolic activity in the abdomen or pelvis. Expected physi ologic activity is present in the genitourinary system and bowel. PROXIMAL LOWER EXTREMITIES: No areas of abnormal metabolic activity in the soft tissues of the lower extremities. BONES: Persistent activity in the marrow throughout. This is most likely related to treatment respon se. Recent CT showed no evidence for metastatic bony lesions. ADDITIONAL CT FINDINGS: No significant. OTHER: No other significant findings. IMPRESSION: Significant response with decrease in size and metabolic activity of the right upper lob e mass and right paratracheal node. Activity in bone marrow likely related to treatment, as no findings on CT recently to suggest metasta tic bone disease. Similar in appearance to previous. TECHNICAL DOCUMENTATION: JOB ID: [id number]- All Rights Reserved
== END ==
LOC: RAD 17:58
PROVIDERS: ATTEND Radiology Radiation Oncology
DX: C34.11 Malignant neoplasm of upper lobe, right bronchus or lung (principal); C77.1 Secondary and unspecified malignant neoplasm of intrathoracic lymph nodes
CPT/HCPCS: 78815; A9552

== ENCOUNTER 2016-10-19 10:36 | Emergency (ER) | payer MEDICAID, OTHER ==
--- NOTE | 2016-10-19 11:40 | ER Document Report ---
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 He has been taking oxycodone for joint pains and has become constipated. His last bowel movement was 1 week ago. He does report getting some loose stool coming through occasionally. He had take citrate from a prior constipation visit, but was taking a capful as a dose. He was not aware that the entire bottle would be a dose for him. He also reports nausea and vomiting all week last week following chemo, and fevers off and on this week. He did not get his Neulasta shot due to the radiation treatments. I have greeted and performed a rapid initial assessment of this patient. A comprehensive ED assessment and evaluation of the patient, analysis of test results and completion of the medical decision making process will be conducted by additional ED providers. TRAVEL OUTSIDE OF THE [place] IN LAST 30 DAYS: No - Related Data Allergies/Adverse Reactions: cat dander Allergy (Unknown, Verified 10/19/16 10:43) Facial swelling pollen extracts Allergy (Unknown, Verified 10/19/16 10:43) Facial swelling POLLEN Allergy (Unknown, Uncoded 10/19/16 10:43) Facial swelling Past Medical History - Social History Chew tobacco use (# tins/day): No Frequency of alcohol use: Occasional Drug Abuse: None - Past Medical History Cardiac Medical History: Reports: Hx Hypertension Denies: Hx Coronary Artery Disease, Hx Heart Attack Pulmonary Medical History: Reports: Hx Pneumonia - 2016 Denies: Hx Asthma, Hx Bronchitis, Hx COPD, Hx Tuberculosis Neurological Medical History: Denies: Hx Cerebrovascular Accident, Hx Seizures Renal/ Medical History: Denies: Hx Peritoneal Dialysis Malignancy Medical History: Reports Hx Lung Cancer Musculoskeltal Medical History: Denies Hx Arthritis Past Surgical History: Reports: Hx Orthopedic Surgery - Left wrist surgery, Other - History of surgery for testicular torsion 40 years ago. Denies: Hx Pacemaker - Immunizations Hx Diphtheria, Pertussis, Tetanus Vaccination: Yes Physical Exam - Vital signs Vitals: Temp Pulse Resp BP Pulse Ox 98.2 F 120 H 20 127/99 H 99 10/19/16 10:43 10/19/16 10:43 10/19/16 10:43 10/19/16 10:43 10/19/16 10:43 Course - Vital Signs Vital signs: Temp Pulse Resp BP Pulse Ox 98.2 F 120 H 20 127/99 H 99 10/19/16 10:43 10/19/16 10:43 10/19/16 10:43 10/19/16 10:43 10/19/16 10:43
[2016-10-19 12:24] LABS: ABSOLUTE LYMPHOCYTES (AUTO) 0.5 10^3/uL (0.5-4.7); ABSOLUTE MONOCYTES (AUTO) 0.5 10^3/uL (0.1-1.4); BASOPHILS % (AUTO) 0.6 % (0-2); EOSINOPHILS % (AUTO) 0.4 % (0-6); HEMATOCRIT 27.1 % (37.9-51.0); HEMOGLOBIN 9.5 g/dL (13.5-17.0); HGB HCT DIFFERENCE 1.4; LYMPHOCYTES % (AUTO) 13.3 % (13-45); MEAN CORPUSCULAR HEMOGLOBIN 34.8 pg (27.0-33.4); MEAN CORPUSCULAR HGB CONC 34.9 g/dL (32.0-36.0); MEAN CORPUSCULAR VOLUME 100 fl (80-97); MONOCYTES % (AUTO) 12.6 % (3-13); RED BLOOD COUNT 2.72 10^6/uL (4.35-5.55); RED CELL DISTRIBUTION WIDTH 15.6 % (11.5-14.0); SEGMENTED NEUTROPHILS % (AUTO) 73.1 % (42-78)
--- NOTE | 2016-10-19 12:27 | RADIOLOGY REPORT (SQ) ---
EXAM DESCRIPTION: KUB/ABDOMEN (SINGLE VIEW) COMPLETED DATE/TIME: 10/19/2016 12:08 pm REASON FOR STUDY: constipation COMPARISON: None. NUMBER OF VIEWS: One view. TECHNIQUE: Supine radiographic image of the abdomen acquired. LIMITATIONS: None. FINDINGS: BOWEL GAS PATTERN: Nonobstructive gas pattern. No dilated loops bowel. There is consider able stool in the rectum. There is a moderate amount stool in the right colon. CALCIFICATIONS: No suspicious calcifications. SOFT TISSUES: No gross mass or suggestion of organomegaly. HARDWARE: None in the abdomen. BONES: No acute fracture. No worrisome bone lesions. OTHER: No other significant finding. IMPRESSION: Constipation. TECHNICAL DOCUMENTATION: JOB ID: [id number] [employer]- All Rights Reserved
[2016-10-19 12:29] LABS: ALANINE AMINOTRANSFERASE 22 U/L (21-72); ALBUMIN 4.6 g/dL (3.5-5.0); ALKALINE PHOSPHATASE 59 U/L (38-126); ANION GAP 13 (5-19); ASPARTATE AMINO TRANSFERASE 26 U/L (17-59); BILIRUBIN,DIRECT 0.5 mg/dL (0.0-0.4); BILIRUBIN,TOTAL 0.7 mg/dL (0.2-1.3); BLOOD UREA NITROGEN 15 mg/dL (7-20); CALCIUM 9.8 mg/dL (8.4-10.2); CARBON DIOXIDE 24 mmol/L (22-30); CHLORIDE 97 mmol/L (98-107); CREATININE RESULT 1.46 mg/dL (0.52-1.25); GLUCOSE 87 mg/dL (75-110); POTASSIUM 4.4 mmol/L (3.6-5.0); SODIUM 133.6 mmol/L (137-145); TOTAL PROTEIN 7.4 g/dL (6.3-8.2)
[2016-10-19] MEDS ORDERED: MINERAL OIL 30 ML UDCUP PR ONE (14:29)
[2016-10-19] MEDS ORDERED: NORMAL SALINE 1000 ML 1,000 ML IV ONE (14:35)
--- NOTE | 2016-10-19 14:35 | ER Document Report ---
ED GI/ - General Mode of Arrival: Ambulatory Information source: Patient TRAVEL OUTSIDE OF THE [place] IN LAST 30 DAYS: No - HPI Patient complains to provider of: Abdominal pain, Other - constipation Associated symptoms: Other - see above <SALVATORE ZAVALA - Last Filed: 10/19/16 14:40> <KAMERON COONEY - Last Filed: 10/19/16 19:19> - General Chief Complaint: Abdominal Pain Stated Complaint: WEAKNESS Time Seen by Provider: 10/19/16 11:29 Notes: Patient is a 51 year old male with a history of small cell lung cancer who presents to the ED with complaints of constipation. Patients last dose of chemo was 1 week ago. Patient has a history of becoming constipated following his chemo. Patient states he also has associated abdominal pain,although not as bad as it has been in the past. Patients last bowel movement was 1 week ago. He is also nauseous and has had a fever intermittently(highest 101.9). Patient did not get his Neulasta shot due to being on radiation, he did receive a 7 day course of antibiotics. PCP: Dr. Ni (SALVATORE ZAVALA) - Related Data Allergies/Adverse Reactions: cat dander Allergy (Unknown, Verified 10/19/16 10:43) Facial swelling pollen extracts Allergy (Unknown, Verified 10/19/16 10:43) Facial swelling POLLEN Allergy (Unknown, Uncoded 10/19/16 10:43) Facial swelling Past Medical History - General Information source: Patient - Social History Smoking Status: Current Every Day Smoker Chew tobacco use (# tins/day): No Frequency of alcohol use: Occasional Drug Abuse: None Family History: None - Past Medical History Cardiac Medical History: Reports: Hx Hypertension Pulmonary Medical History: Reports: Hx Pneumonia - 2016 Renal/ Medical History: Denies: Hx Peritoneal Dialysis Malignancy Medical History: Reports Hx Lung Cancer - small cell Past Surgical History: Reports: Hx Orthopedic Surgery - Left wrist surgery, Other - History of surgery for testicular torsion 40 years ago. Denies: Hx Pacemaker - Immunizations Hx Diphtheria, Pertussis, Tetanus Vaccination: Yes Hx Pneumococcal Vaccination: 06/07/11 <SALVATORE ZAVALA - Last Filed: 10/19/16 14:40> Review of Systems - Review of Systems Constitutional: See HPI, Fever EENT: No symptoms reported Cardiovascular: No symptoms reported Respiratory: No symptoms reported Gastrointestinal: See HPI, Abdominal pain, Nausea, Constipation, Last bowel movement - 1 week ago Genitourinary: No symptoms reported Male Genitourinary: No symptoms reported Musculoskeletal: No symptoms reported Skin: No symptoms reported Hematologic/Lymphatic: No symptoms reported Neurological/Psychological: No symptoms reported <SALVATORE ZAVALA - Last Filed: 10/19/16 14:40> Physical Exam <SALVATORE ZAVALA - Last Filed: 10/19/16 14:40> <KAMERON COONEY - Last Filed: 10/19/16 19:19> - Vital signs Vitals: Temp Pulse Resp BP Pulse Ox 98.2 F 120 H 20 127/99 H 99 10/19/16 10:43 10/19/16 10:43 10/19/16 10:43 10/19/16 10:43 10/19/16 10:43 - Notes Notes: GENERAL: Alert, interacts well. Somewhat uncomfortable. HEAD: Normocephalic, atraumatic. EYES: Pupils equal, round, and reactive to light. Extraocular movements intact. ENT: Oral mucosa moist, tongue midline. NECK: Full range of motion. Supple. Trachea midline. LUNGS: Clear to auscultation bilaterally, no wheezes, rales, or rhonchi. No respiratory distress. HEART: Regular rate and rhythm. No murmurs, gallops, or rubs. ABDOMEN: Soft, non-tender. Non-distended. Bowel sounds present in all 4 quadrants. RECTAL: Chaperoned by MERCY Brito. Skin tag at 12 oclock position. Moderate about of firm brown stool. No blood. EXTREMITIES: Moves all 4 extremities spontaneously. No edema. No cyanosis. NEUROLOGICAL: Alert and oriented x3. Normal speech. PSYCH: Normal affect, normal mood. SKIN: Warm, dry, normal turgor. No rashes or lesions noted. (SALVATORE ZAVALA) Course - Laboratory Result Diagrams: 10/19/16 11:45 10/19/16 11:45 - Consults Dr. Ni Time consulted: 14:40 <SALVATORE ZAVALA - Last Filed: 10/19/16 14:40> - Laboratory Result Diagrams: 10/19/16 11:45 10/19/16 11:45 <KAMERON COONEY - Last Filed: 10/19/16 19:19> - Re-evaluation Re-evalutation: 10/19/16 14:57 CBC shows no leukocytosis and no left shift, there is anemia with a hemoglobin 9.5, CMP shows slightly low sodium of 133.6, acute renal failure with a BUN of 15 and a creatinine of 1.46 consistent with dehydration, patient is hydrated with a liter of normal saline, blood cultures are pending, urinalysis is pending , KUB shows no signs of obstruction but a large amount of stool consistent with constipation as noted on my rectal examination. Patient will be treated with mineral oil and soapsuds enema. Also discussed the patient's fevers with Dr. Ni, request that I start Augmentin 875 mg twice a day as the fevers have continued despite his 7 day course of Levaquin previously. (KAMERON COONEY) - Vital Signs Vital signs: Temp Pulse Resp BP Pulse Ox 98.8 F 90 16 134/86 H 100 10/19/16 16:52 10/19/16 16:52 10/19/16 16:52 10/19/16 16:52 10/19/16 16:52 - Laboratory Laboratory results interpreted by me: 10/19/16 10/19/16 10/19/16 11:45 11:45 16:40 RBC 2.72 L Hgb 9.5 L Hct 27.1 L MCV 100 H MCH 34.8 H RDW 15.6 H Sodium 133.6 L Chloride 97 L Creatinine 1.46 H Est GFR (Non-Af Amer) 51 L Direct Bilirubin 0.5 H Urine Ketones TRACE H - Consults Dr. Ni Reason for consultation: 10/19/16 14:40 Discussed patient. He recommends starting the patient on Augmentin. (SALVATORE ZAVALA) Discharge <SALVATORE ZAVALA - Last Filed: 10/19/16 14:40> <KAMERON COONEY - Last Filed: 10/19/16 19:19> - Discharge Clinical Impression: Fever, unknown origin Acute renal failure Qualifiers: Acute renal failure type: unspecified Qualified Code(s): N17.9 - Acute kidney failure, unspecified Constipation Qualifiers: Constipation type: slow transit constipation Qualified Code(s): K59.01 - Slow transit constipation Small cell lung cancer Qualifiers: Laterality: unspecified laterality Qualified Code(s): C34.90 - Malignant neoplasm of unspecified part of unspecified bronchus or lung Hypertension Qualifiers: Hypertension type: essential hypertension Qualified Code(s): I10 - Essential ( primary) hypertension Condition: Stable Disposition: HOME, SELF-CARE Additional Instructions: Take jabier Augmentin as directed until it is gone. Please return to the ED for any Fever chemo worsening fevers, worsening pain, inability to have a bowel movement. Please dissolve 1 scoop of MiraLAX in a glass of water once a day to treat constipation. You may increase to twice a day if needed to create soft bowel movements and you may decrease to every other day if you develop diarrhea. Prescriptions: Amox Tr/Potassium Clavulanate [Augmentin 875-125 Tablet] 1 tab PO BID 7 Days tablet Mineral Oil [Fleet Mineral Oil Enema 133 ml] 133 ml AL DAILYP PRN #1 enema PRN Reason: Referrals: RITU MA MD [Primary Care Provider] - Follow up as needed Scribe Attestation: 10/19/16 19:18 I personally performed the services described in the documentation, reviewed and edited the documentation which was dictated to the scribe in my presence, and it accurately records my words and actions. (KAMERON COONEY) Scribe Documentation - Scribe Written by Henny:: henny Wright, 10/19/2016, 1435 acting as scribe for :: Carol <SALVATORE ZAVALA - Last Filed: 10/19/16 14:40>
[2016-10-19] MEDS ORDERED: AMOXICILLIN TR/POT CLAVULANATE 250-125 MG TAB PO ONE (15:28)
[2016-10-19] MEDS ORDERED: AMOXICILLIN TR/POT CLAVULANATE 500-125 MG TAB PO ONE (15:28)
[2016-10-19 16:53] VITALS: BP 134/86
[2016-10-19 16:54] LABS: APPEARANCE,URINE CLEAR; BILIRUBIN,URINE NEGATIVE (NEGATIVE); GLUCOSE, URINE NEGATIVE (NEGATIVE); KETONES,URINE TRACE mg/dL (NEGATIVE); LEUKOCYTE ESTERASE,URINE NEGATIVE (NEGATIVE); NITRITE,URINE NEGATIVE (NEGATIVE); PROTEIN,URINE NEGATIVE (NEGATIVE); URINE SPECIFIC GRAVITY 1.008; UROBILINOGEN,URINE NEGATIVE mg/dL (<2.0)
== END 2016-10-19 16:52 | disposition home or self-care (01) ==
LOC: ER 10:36
DX: C34.90 Malignant neoplasm of unspecified part of unspecified bronchus or lung (principal); N17.9 Acute kidney failure, unspecified; K59.01 Slow transit constipation; R50.9 Fever, unspecified; I10 Essential (primary) hypertension; R10.9 Unspecified abdominal pain; R53.1 Weakness; R11.0 Nausea; F17.200 Nicotine dependence, unspecified, uncomplicated; Z79.899 Other long term (current) drug therapy
CPT/HCPCS: 99285; 96360; 36415; 87040; 87086; 85025; 80053; 81001; 74000; J3490 ×3; J7030

== ENCOUNTER → 2016-10-25 | Outpatient (CLI) | payer MEDICAID, OTHER ==
--- NOTE | 2016-10-25 12:54 | RADIOLOGY REPORT (SQ) ---
EXAM DESCRIPTION: CT CHEST WITHOUT COMPLETED DATE/TIME: 10/25/2016 8:49 am REASON FOR STUDY: LUNG CA (C34.90) C34.90 MALIGNANT NEOPLASM OF UNSP PART OF UNSP BRONCHUS OR L COMPARISON: 08/27/2016 TECHNIQUE: CT scan performed of the chest without intravenous contrast. Images reviewed with lung, soft tissue and bone windows. Reconstructed coronal and sagittal MPR images reviewed. All images st ored on PACS. All CT scanners at this facility use dose modulation, iterative reconstruction, and/or weight based d osing when appropriate to reduce radiation dose to as low as reasonably achievable (ALARA). [facility]: Dose Right [facility]: CareDose [facility]: Dose Right [facility]: Teradose 4D [facility]: [employer] RADIATION DOSE: Up-to-date CT equipment and radiation dose reduction techniques were employed. CTDIv ol: 6.8 mGy. DLP: 292 mGy-cm. mGy. LIMITATIONS: No technical limitations. FINDINGS: LUNGS AND PLEURA: Partially calcified right upper lobe mass measures about 3.9 x 5.5 cm in AP by transverse diameter. No new nodules. No effusions. Paraseptal emphysema. HILAR AND MEDIASTINAL STRUCTURES: No identified masses or abnormal nodes. No obvious aneurysm. HEART AND VASCULAR STRUCTURES: No aneurysm. No pericardial effusion. UPPER ABDOMEN: No significant findings. Limited exam. THYROID AND OTHER SOFT TISSUES: No masses. No adenopathy. BONES: No significant finding. HARDWARE: None in the chest. OTHER: No other significant findings. IMPRESSION: Slight decrease in size of right upper lobe mass. TECHNICAL DOCUMENTATION: JOB ID: [id number] Quality ID # [id number]: Final reports with documentation of one or more dose reduction techniques (e.g., Au tomated exposure control, adjustment of the mA and/or kV according to patient size, use of iterative reconstruction technique) 2010 [employer]- All Rights Reserved
== END ==
LOC: RAD 08:34
PROVIDERS: ATTEND Internal Medicine Hematology & Oncology
DX: C34.90 Malignant neoplasm of unspecified part of unspecified bronchus or lung (principal)
CPT/HCPCS: 71250

== ENCOUNTER → 2016-12-28 | Outpatient (CLI) | payer MEDICAID, OTHER ==
--- NOTE | 2016-12-28 14:55 | RADIOLOGY REPORT (SQ) ---
EXAM DESCRIPTION: CT CHEST WITH COMPLETED DATE/TIME: 12/28/2016 1:42 pm REASON FOR STUDY: MAL WILNER OF UNSPEC PART OF BRONCHUS OR LUNG C34.90 MALIGNANT NEOPLASM OF UNSP PART OF UNSP BRONCHUS OR L COMPARISON: 10/25/2016 and 08/27/2016. TECHNIQUE: CT scan of the chest performed using helical scanning technique with dynamic intravenous contrast injection. Images reviewed with lung, soft tissue and bone windows. Reconstructed coronal and sagittal MPR images reviewed. All images stored on PACS. All CT scanners at this facility use dose modulation, iterative reconstruction, and/or weight based d osing when appropriate to reduce radiation dose to as low as reasonably achievable (ALARA). [facility]: Dose Right [facility]: CareDose [facility]: Dose Right [facility]: Teradose 4D [facility]: [employer] CONTRAST TYPE AND DOSE: contrast/concentration: Isovue 300.00 mg/ml; Total Contrast Delivered: 80.0 ml; Total Saline Delivered: 46.4 ml RENAL FUNCTION: Creatinine 1.5. RADIATION DOSE: Up-to-date CT equipment and radiation dose reduction techniques were employed. CTDIv ol: 10.7 mGy. DLP: 443 mGy-cm. . LIMITATIONS: None. FINDINGS: LUNGS AND PLEURA: Emphysematous changes. Spiculated mass in the perihilar right lung is s maller. Current measurements 2.6 x 4.3 cm with prior measurement of 4.0 x 5.5 cm. Stable central ca lcifications. No new nodules or masses. No pleural effusion or pleural thickening. HILAR AND MEDIASTINAL STRUCTURES: No identified masses or abnormal nodes. HEART AND VASCULAR STRUCTURES: No aneurysm or dissection. No central pulmonary emboli. No pericardi al effusion. HARDWARE: None in the chest. UPPER ABDOMEN: No significant findings. Limited exam. THYROID AND OTHER SOFT TISSUES: No masses. No adenopathy. BONES: No significant finding. OTHER: No other significant finding. IMPRESSION: SPICULATED MASS IN THE RIGHT LUNG HAS DECREASED IN SIZE. NO NEW NODULES OR MASSES. NO OTHER SIGNIFICANT FINDINGS. TECHNICAL DOCUMENTATION: JOB ID: [id number] Quality ID # [id number]: Final reports with documentation of one or more dose reduction techniques (e.g., Au tomated exposure control, adjustment of the mA and/or kV according to patient size, use of iterative reconstruction technique) 2010 [employer]- All Rights Reserved
== END ==
LOC: RAD 12:53
PROVIDERS: ATTEND Internal Medicine Hematology & Oncology
DX: C34.90 Malignant neoplasm of unspecified part of unspecified bronchus or lung (principal)
CPT/HCPCS: 71260; 82565

== ENCOUNTER → 2016-12-31 | Outpatient (CLI) | payer MEDICAID, OTHER ==
--- NOTE | 2016-12-31 15:08 | RADIOLOGY REPORT (SQ) ---
EXAM DESCRIPTION: MRI HEAD COMBO COMPLETED DATE/TIME: 12/31/2016 1:59 pm REASON FOR STUDY: LUGN CA (C34.90) C34.90 MALIGNANT NEOPLASM OF UNSP PART OF UNSP BRONCHUS OR L COMPARISON: None. TECHNIQUE: Multiplanar imaging includes noncontrasted T1, T2, FLAIR, and Diffusion with ADC map seq uences. Contrast enhanced T1 images. Images stored on PACS. CONTRAST TYPE AND DOSE: Not recorded by technologist. ML RENAL FUNCTION: Not recorded by technologist. LIMITATIONS: None. FINDINGS: ANATOMY: No anomalies. Normal vascular flow voids. Pituitary fossa normal. CSF SPACES: Normal size and contour. No hemorrhage. CEREBRUM: A few high-signal intensity lesions scattered throughout the white matter on FLAIR imaging with distribution suggesting chronic microvascular ischemic change. Sulci and gyri normal in size and contour. No evidence of hemorrhage, mass or extraaxial fluid collection. No enhancing lesions. POSTERIOR FOSSA: No signal alteration. No hemorrhage. No edema, masses or mass effect. Internal audit ory canals, cerebello-pontine angles, mastoids normal. DIFFUSION: Negative for acute or subacute infarction. ORBITS: No masses. Globes normal. PARANASAL SINUSES: No fluid levels. Mucosa normal. OTHER: No other significant finding. IMPRESSION: No evidence of metastatic disease. EVIDENCE OF ACUTE STROKE: NO. TECHNICAL DOCUMENTATION: JOB ID: [id number] [employer]- All Rights Reserved
== END ==
LOC: RAD 12:52
PROVIDERS: ATTEND Internal Medicine Hematology & Oncology
DX: C34.90 Malignant neoplasm of unspecified part of unspecified bronchus or lung (principal)
CPT/HCPCS: 70553; A9577

== ENCOUNTER → 2017-04-23 | Outpatient (CLI) | payer MEDICAID, OTHER ==
--- NOTE | 2017-04-23 15:23 | RADIOLOGY REPORT (SQ) ---
EXAM DESCRIPTION: CT CHEST WITH COMPLETED DATE/TIME: 04/23/2017 2:14 pm REASON FOR STUDY: PERSONAL HX OF OTHER MAL WILNER OF BRONCHUS AND LUNG Z85.118 PERSONAL HISTORY OF MAL IGNANT NEOPLASM OF BRONCHUS A COMPARISON: May 2016, August 2016, December 2016 TECHNIQUE: CT scan of the chest performed using helical scanning technique with dynamic intravenous contrast injection. Images reviewed with lung, soft tissue and bone windows. Reconstructed coronal and sagittal MPR images reviewed. All images stored on PACS. All CT scanners at this facility use dose modulation, iterative reconstruction, and/or weight based d osing when appropriate to reduce radiation dose to as low as reasonably achievable (ALARA). [facility]: Dose Right [facility]: CareDose [facility]: Dose Right [facility]: Teradose 4D [facility]: [employer] CONTRAST TYPE AND DOSE: contrast/concentration: Isovue 370.00 mg/ml; Total Contrast Delivered: 80.0 ml; Total Saline Delivered: 55.0 ml RENAL FUNCTION: Creatinine 1.4 RADIATION DOSE: CT Rad equipment meets quality standard of care and radiation dose reduction techniq ues were employed. CTDIvol: 7.4 mGy. DLP: 312 mGy-cm. . LIMITATIONS: None. FINDINGS: LUNGS AND PLEURA: Further decrease in size of the right upper lobe mass. Dystrophic centr al calcification. Now measures 4.2 x 2.5 cm. Generalized emphysematous changes. HILAR AND MEDIASTINAL STRUCTURES: No identified masses or abnormal nodes. HEART AND VASCULAR STRUCTURES: No aneurysm or dissection. No central pulmonary emboli. No pericardi al effusion. HARDWARE: None in the chest. UPPER ABDOMEN: No significant findings. Limited exam. THYROID AND OTHER SOFT TISSUES: No masses. No adenopathy. BONES: No significant finding. OTHER: No other significant finding. IMPRESSION: Further decrease in size of the right upper lobe mass lesion which now contains dystroph ic central calcification. No metastatic lesions noted. TECHNICAL DOCUMENTATION: JOB ID: [id number] Quality ID # [id number]: Final reports with documentation of one or more dose reduction techniques (e.g., Au tomated exposure control, adjustment of the mA and/or kV according to patient size, use of iterative reconstruction technique) 2010 [employer]- All Rights Reserved
== END ==
LOC: RAD 12:45
PROVIDERS: ATTEND Internal Medicine Medical Oncology
DX: Z85.118 Personal history of other malignant neoplasm of bronchus and lung (principal); J43.9 Emphysema, unspecified
CPT/HCPCS: 71260; 82565

== ENCOUNTER → 2017-05-12 | Outpatient (CLI) | payer MEDICAID ==
--- NOTE | 2017-05-13 12:15 | RADIOLOGY REPORT (SQ) ---
EXAM DESCRIPTION: PET CT SKULL/THIGH COMPLETED DATE/TIME: 05/12/2017 9:44 pm REASON FOR STUDY: LUNG CANCER C34.90 MALIGNANT NEOPLASM OF UNSP PART OF UNSP BRONCHUS OR L COMPARISON: CT chest dated 04/23/2017. PET-CT dated 09/09/2016 and 07/01/2016. RADIONUCLIDE AND DOSE: 10.0 mCi F18 FDG The route of agent administration: Intravenous FASTING BLOOD SUGAR: 94 mg/dl CONTRAST TYPE AND DOSE: No CT contrast given. TECHNIQUE: Blood glucose level was verified. Above dose of FDG was injected intravenously. 2-D seg mented attenuation correction images were obtained from the base of the skull to the midthighs. Nonc ontrast CT images were obtained for attenuation correction and fusion with emission images. CT image s were performed without oral or intravenous contrast and are not sensitive for parenchymal lesions. A series of overlapping emission PET images were obtained. Images reviewed and manipulated at [facility] in [place] work station by the radiologist. Images stored on PACS. LIMITATIONS: None. FINDINGS: HEAD AND NECK: No areas of abnormal metabolic activity in the soft tissues of the head and neck. CHEST: Again seen is an irregular mass in the right lung with dystrophic calcifications. Mean SUV va lue 2.57 with prior value 4.6. No significant adenopathy. ABDOMEN AND PELVIS: No areas of abnormal metabolic activity in the abdomen or pelvis. Expected physi ologic activity is present in the genitourinary system and bowel. PROXIMAL LOWER EXTREMITIES: No areas of abnormal metabolic activity in the soft tissues of the lower extremities. BONES: No abnormal metabolic activity in the visualized skeleton. ADDITIONAL CT FINDINGS: No additional significant findings on the noncontrast CT images. OTHER: No other significant findings. IMPRESSION: 1. CONTINUED IMPROVEMENT IN THE RIGHT LUNG MASS WITH DECREASE IN SIZE AND ACTIVITY. NO EVIDENCE OF P ROGRESSION OR METASTASES. 2. PREVIOUSLY SEEN DIFFUSE MARROW ACTIVITY IN THE SKELETON HAS RESOLVED. 3. NO OTHER SIGNIFICANT FINDINGS. TECHNICAL DOCUMENTATION: JOB ID: [id number]- All Rights Reserved Reading location - IP/workstation name: [email or web address]-[email or web address]
== END ==
LOC: RAD 19:03
PROVIDERS: ATTEND Internal Medicine Medical Oncology
DX: C34.91 Malignant neoplasm of unspecified part of right bronchus or lung (principal)
CPT/HCPCS: 78815; A9552

== ENCOUNTER → 2017-06-13 | Outpatient (CLI) | payer MEDICAID ==
[2017-06-13 13:31] LABS: ANION GAP 13 (5-19); BLOOD UREA NITROGEN 16 mg/dL (7-20); CALCIUM 10.7 mg/dL (8.4-10.2); CARBON DIOXIDE 26 mmol/L (22-30); CHLORIDE 99 mmol/L (98-107); CREATINE KINASE 37 U/L (55-170); GLUCOSE 98 mg/dL (75-110); POTASSIUM 4.3 mmol/L (3.6-5.0); SODIUM 138.2 mmol/L (137-145)
== END ==
LOC: OD 12:28
PROVIDERS: ATTEND Internal Medicine
DX: M79.1 Myalgia (principal)
CPT/HCPCS: 36415; 80048; 82550; 83735

== ENCOUNTER 2017-07-02 09:53 | Emergency (ER) | payer MEDICAID ==
[2017-07-02] MEDS ORDERED: DIPH/PERTUSS(ACELL)/TETANUS VAC/PF 0.5 ML SYR (>=10YO) IM ONE (10:13)
--- NOTE | 2017-07-02 10:15 | ER Document Report ---
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 He thinks he had LOC for 12 hours. PE: Laceration through the middle of right ear, no malocclusion, ecchymosis below right eye, EOMI. I have greeted and performed a rapid initial assessment of this patient. A comprehensive ED assessment and evaluation of the patient, analysis of test results and completion of the medical decision making process will be conducted by additional ED providers. TRAVEL OUTSIDE OF THE [place] IN LAST 30 DAYS: No - Related Data Allergies/Adverse Reactions: cat dander Allergy (Unknown, Verified 07/02/17 09:56) Facial swelling pollen extracts Allergy (Unknown, Verified 07/02/17 09:56) Facial swelling POLLEN Allergy (Unknown, Uncoded 10/19/16 10:43) Facial swelling Past Medical History - Social History Frequency of alcohol use: None Drug Abuse: None - Past Medical History Cardiac Medical History: Reports: Hx Hypertension Denies: Hx Coronary Artery Disease, Hx Heart Attack Pulmonary Medical History: Reports: Hx Pneumonia - 2016 Denies: Hx Asthma, Hx Bronchitis, Hx COPD, Hx Tuberculosis Neurological Medical History: Denies: Hx Cerebrovascular Accident, Hx Seizures Renal/ Medical History: Denies: Hx Peritoneal Dialysis Malignancy Medical History: Reports Hx Lung Cancer - small cell Musculoskeltal Medical History: Denies Hx Arthritis Past Surgical History: Reports: Hx Orthopedic Surgery - Left wrist surgery, Other - History of surgery for testicular torsion 40 years ago. Denies: Hx Pacemaker - Immunizations Hx Diphtheria, Pertussis, Tetanus Vaccination: Yes Physical Exam - Vital signs Vitals: Temp Pulse Resp BP Pulse Ox 98.2 F 104 H 15 122/86 H 100 07/02/17 10:00 07/02/17 10:00 07/02/17 10:00 07/02/17 10:07/02/17 10:00 Course - Vital Signs Vital signs: Temp Pulse Resp BP Pulse Ox 98.2 F 104 H 15 122/86 H 100 07/02/17 10:00 07/02/17 10:00 07/02/17 10:00 07/02/17 10:00 07/02/17 10:00
[2017-07-02] MEDS ORDERED: CEFAZOLIN 1 GM/D5W RTU 1 GM/50 ML RTUPB IV ONE (10:58)
[2017-07-02] MEDS ORDERED: LIDOCAINE 1% INJ-PF (10 MG/ML) 30 ML SDV INJ ONE (10:59)
[2017-07-02] MEDS ORDERED: NORMAL SALINE 1000 ML 1,000 ML IV ONE (11:26)
--- NOTE | 2017-07-02 11:34 | RADIOLOGY REPORT (SQ) ---
EXAM DESCRIPTION: CT HEAD WITHOUT COMPLETED DATE/TIME: 07/02/2017 10:44 am REASON FOR STUDY: fall, head and face injury COMPARISON: None. TECHNIQUE: Axial images acquired through the brain without intravenous contrast. Images reviewed wi th bone, brain and subdural windows. Additional sagittal and coronal reconstructions were generated. Images stored on PACS. All CT scanners at this facility use dose modulation, iterative reconstruction, and/or weight based d osing when appropriate to reduce radiation dose to as low as reasonably achievable (ALARA). [facility]: Dose Right [facility]: CareDose [facility]: Dose Right [facility]: Teradose 4D [facility]: [employer] RADIATION DOSE: CT Rad equipment meets quality standard of care and radiation dose reduction techniq ues were employed. CTDIvol: 53.2 mGy. DLP: 1044 mGy-cm. mGy. LIMITATIONS: None. FINDINGS: VENTRICLES: Normal size and contour. CEREBRUM: No masses. No hemorrhage. No midline shift. No evidence for acute infarction. Normal gra y/white matter differentiation. No areas of low density in the white matter. CEREBELLUM: No masses. No hemorrhage. No alteration of density. No evidence for acute infarction. EXTRAAXIAL SPACES: No fluid collections. No masses. ORBITS AND GLOBE: No intra- or extraconal masses. Normal contour of globe without masses. CALVARIUM: No fracture. PARANASAL SINUSES: No fluid or mucosal thickening. SOFT TISSUES: No mass or hematoma. OTHER: No other significant finding. IMPRESSION: NORMAL BRAIN CT WITHOUT CONTRAST. EVIDENCE OF ACUTE STROKE: NO. COMMENT: Quality ID # [id number]: Final reports with documentation of one or more dose reduction techniques (e.g., Automated exposure control, adjustment of the mA and/or kV according to patient size, use of iterative reconstruction technique) TECHNICAL DOCUMENTATION: JOB ID: [id number] [employer]- All Rights Reserved Reading location - IP/workstation name: [email or web address]
--- NOTE | 2017-07-02 11:37 | RADIOLOGY REPORT (SQ) ---
EXAM DESCRIPTION: CT FACIAL AREA WITHOUT COMPLETED DATE/TIME: 07/02/2017 10:44 am REASON FOR STUDY: fall, head and face injury COMPARISON: CT brain same date TECHNIQUE: Noncontrasted images through the facial bones and orbits windowed for bone and soft tissu e. Additional coronal and sagittal reconstructed images reviewed. All images stored on PACS. All CT scanners at this facility use dose modulation, iterative reconstruction, and/or weight based d osing when appropriate to reduce radiation dose to as low as reasonably achievable (ALARA). [facility]: Dose Right [facility]: CareDose [facility]: Dose Right [facility]: Teradose 4D [facility]: CarePayment RADIATION DOSE: CT Rad equipment meets quality standard of care and radiation dose reduction techniq ues were employed. CTDIvol: 30.4 mGy. DLP: 654 mGy-cm. mGy. LIMITATIONS: None. FINDINGS: FACIAL BONES: No fracture or bone lesion. ORBITS: Intact. No fracture. Symmetric intact globes and retroorbital soft tissues. PARANASAL SINUSES: There is chronic appearing mucous membrane thickening with subperiosteal thickenin g in the sphenoid sinus. Remainder the paranasal sinuses, mastoid air cells, middle ear cavities are clear. No nasal polyps. Maxillary sinus outlets are patent. SOFT TISSUES: No mass or edema. INFERIOR BRAIN: Limited view. No acute findings. OTHER: No other significant finding. IMPRESSION: NO ACUTE FINDINGS. TECHNICAL DOCUMENTATION: JOB ID: [id number] Quality ID # [id number]: Final reports with documentation of one or more dose reduction techniques (e.g., Au tomated exposure control, adjustment of the mA and/or kV according to patient size, use of iterative reconstruction technique) 2010 [employer]- All Rights Reserved Reading location - IP/workstation name: [email or web address]
[2017-07-02 12:31] LABS: ABSOLUTE EOSINOPHILS # (AUTO) 0.1 10^3/uL (0.0-0.6); ABSOLUTE LYMPHOCYTES (AUTO) 0.4 10^3/uL (0.5-4.7); ABSOLUTE MONOCYTES (AUTO) 0.7 10^3/uL (0.1-1.4); ABSOLUTE NEUT (AUTO) 3.3 10^3/uL (1.7-8.2); BASOPHILS % (AUTO) 0.2 % (0-2); EOSINOPHILS % (AUTO) 2.3 % (0-6); HEMATOCRIT 35.6 % (37.9-51.0); HEMOGLOBIN 12.4 g/dL (13.5-17.0); MEAN CORPUSCULAR HEMOGLOBIN 33.4 pg (27.0-33.4); MEAN CORPUSCULAR HGB CONC 34.7 g/dL (32.0-36.0); MEAN CORPUSCULAR VOLUME 96 fl (80-97); MONOCYTES % (AUTO) 15.1 % (3-13); PLATELET COUNT 298 10^3/uL (150-450); RED CELL DISTRIBUTION WIDTH 13.9 % (11.5-14.0); SEGMENTED NEUTROPHILS % (AUTO) 73.4 % (42-78); TOTAL CELLS COUNTED % (AUTO) 100 %; WHITE BLOOD COUNT 4.5 10^3/uL (4.0-10.5)
[2017-07-02 12:57] LABS: ALANINE AMINOTRANSFERASE 28 U/L (21-72); ALBUMIN 4.4 g/dL (3.5-5.0); ALKALINE PHOSPHATASE 81 U/L (38-126); ANION GAP 14 (5-19); ASPARTATE AMINO TRANSFERASE 23 U/L (17-59); BILIRUBIN,DIRECT 0.3 mg/dL (0.0-0.4); BILIRUBIN,TOTAL 0.3 mg/dL (0.2-1.3); BLOOD UREA NITROGEN 14 mg/dL (7-20); CALCIUM 9.7 mg/dL (8.4-10.2); CARBON DIOXIDE 30 mmol/L (22-30); CHLORIDE 90 mmol/L (98-107); GLUCOSE 92 mg/dL (75-110); POTASSIUM 4.1 mmol/L (3.6-5.0); SODIUM 134.1 mmol/L (137-145); TOTAL PROTEIN 6.9 g/dL (6.3-8.2)
[2017-07-02] MEDS ORDERED: OXYCODONE-ACETAMINOPHEN 5-325 MG TABLET PO ONE (13:16)
[2017-07-02] MEDS ORDERED: AMPICILLIN SOD/SULBACTAM 3 GM VIAL IV ONE (13:29)
--- NOTE | 2017-07-02 14:51 | ER Document Report ---
ED General - General Chief Complaint: Fall Injury Stated Complaint: HEADACHE/EAR PAIN Time Seen by Provider: 07/02/17 10:13 Mode of Arrival: Ambulatory Information source: Patient Notes: This is a 52-year-old man with a history of small cell lung cancer (status post chemotherapy and radiation in the past), that fell going to the bathroom early Saturday morning. Patient states that he started having pain Saturday throughout the day and again yesterday and came in. He does state that when he fell he may have lost consciousness briefly. States he did hit his head. He comes in with an ear laceration. TRAVEL OUTSIDE OF THE [place] IN LAST 30 DAYS: No - HPI Onset: Other - 2 days ago Onset/Duration: Sudden Quality of pain: Dull Severity: Moderate Pain Level: 2 Associated symptoms: denies: Chest pain, Fever, Shortness of breath Exacerbated by: Denies Relieved by: Denies Similar symptoms previously: No Recently seen / treated by doctor: No - Related Data Allergies/Adverse Reactions: cat dander Allergy (Unknown, Verified 07/02/17 09:56) Facial swelling pollen extracts Allergy (Unknown, Verified 07/02/17 09:56) Facial swelling POLLEN Allergy (Unknown, Uncoded 10/19/16 10:43) Facial swelling Past Medical History - General Information source: Patient - Social History Smoking Status: Current Some Day Smoker Cigarette use (# per day): Yes - Half pack per day Chew tobacco use (# tins/day): No Frequency of alcohol use: None Drug Abuse: None Lives with: Alone Family History: None Patient has suicidal ideation: No Patient has homicidal ideation: No - Past Medical History Cardiac Medical History: Reports: Hx Hypertension Denies: Hx Coronary Artery Disease, Hx Heart Attack Pulmonary Medical History: Reports: Hx Pneumonia - 2016 Denies: Hx Asthma, Hx Bronchitis, Hx COPD, Hx Tuberculosis Neurological Medical History: Denies: Hx Cerebrovascular Accident, Hx Seizures Renal/ Medical History: Denies: Hx Peritoneal Dialysis Malignancy Medical History: Reports Hx Lung Cancer - small cell Musculoskeltal Medical History: Denies Hx Arthritis Past Surgical History: Reports: Hx Orthopedic Surgery - Left wrist surgery, Other - History of surgery for testicular torsion 40 years ago. Denies: Hx Pacemaker - Immunizations Hx Diphtheria, Pertussis, Tetanus Vaccination: Yes Hx Pneumococcal Vaccination: 06/07/11 Review of Systems - Review of Systems Constitutional: denies: Chills, Fever EENT: See HPI Cardiovascular: No symptoms reported Respiratory: No symptoms reported Gastrointestinal: No symptoms reported Genitourinary: No symptoms reported Male Genitourinary: No symptoms reported Musculoskeletal: No symptoms reported Skin: See HPI Hematologic/Lymphatic: No symptoms reported Neurological/Psychological: See HPI Physical Exam - Vital signs Vitals: Temp Pulse Resp BP Pulse Ox 98.2 F 104 H 15 122/86 H 100 07/02/17 10:00 07/02/17 10:00 07/02/17 10:00 07/02/17 10:07/02/17 10:00 Notes: Physical exam: GENERAL: 52-year-old man, alert and oriented 3, no acute distress. HEAD: Patient has nubia-orbital ecchymoses on the right side. EYES: Pupils equal round and reactive to light, extraocular movements intact, sclera anicteric, conjunctiva are normal. ENT: Patient has a complicated ear laceration on the right: The laceration extends through the inferior portion of the heel lacks an anti-helix and extends through the anterior tragus NECK: Normal range of motion, supple without obvious mass or JVD. No cervical spine tenderness. LUNGS: Breath sounds clear to auscultation bilaterally and equal. No wheezes rales or rhonchi. HEART: Regular rate and rhythm without murmurs, rubs or gallops. ABDOMEN: Soft, normoactive bowel sounds. No tenderness to palpation. No guarding, no rebound. No masses appreciated. EXTREMITIES: Normal range of motion, no pitting or edema. No clubbing or cyanosis. NEUROLOGICAL: Cranial nerves II through XII grossly intact. Normal speech, moving all extremities. PSYCH: Normal mood, normal affect. SKIN: Warm, Dry, normal turgor, no rashes or lesions noted. Course - Re-evaluation Re-evalutation: 07/02/17 14:48 Procedure note: Patient received an ear block with IV lidocaine. The wound was then irrigated and scrubbed. The injury clearly goes through the cartilage and may be showing signs of early infection. Dr. Dawkins of ENT was notified who examined patient and will take the patient to the OR tomorrow. Patient received IV Ancef/Unasyn in the ER. Patient will be discharged with a bulky dressing and Augmentin. Tetanus was given 07/02/17 14:49 - Vital Signs Vital signs: Temp Pulse Resp BP Pulse Ox 98.4 F 85 18 125/81 99 07/02/17 15:12 07/02/17 15:12 07/02/17 15:12 07/02/17 15:12 07/02/17 15:12 - Laboratory Result Diagrams: 07/02/17 12:15 07/02/17 12:15 Laboratory results interpreted by me: 07/02/17 07/02/17 12:15 12:15 RBC 3.70 L Hgb 12.4 L Hct 35.6 L Lymphocytes % 9.0 L Monocytes % 15.1 H Absolute Lymphocytes 0.4 L Sodium 134.1 L Chloride 90 L Creatinine 1.31 H Est GFR (Non-Af Amer) 57 L - Diagnostic Test Radiology reviewed: Image reviewed, Reports reviewed - CT of the head and face are negative. Discharge - Discharge Clinical Impression: Right ear laceration, Concussion Condition: Stable Disposition: HOME, SELF-CARE Instructions: Concussion ([facility]), Tetanus Immunization Given ([facility]) Additional Instructions: As we discussed, the CT of the head and face look good. Recommendations: Return to the outpatient surgical center (in the back of the hospital) at 11 AM tomorrow. Your surgical procedure will be at 1 PM. No eating past midnight tonight. You may take your blood pressure medicines in the morning with some water You can hold off on your morning antibiotics until after the procedure. Hold off on pain medicine until after the procedure. Prescriptions: Amox Tr/Potassium Clavulanate [Augmentin 875-125 Tablet] 1 tab PO BID #20 tablet Oxycodone HCl/Acetaminophen [Percocet 5-325 mg Tablet] 1 - 2 tab PO ASDIR PRN # 15 tablet PRN Reason: Referrals: RITU MA MD [Primary Care Provider] - Follow up as needed JANEE HILL DO [ASSOCIATE] - Follow up as needed
[2017-07-02 15:20] VITALS: BP 125/81
--- NOTE | 2017-07-02 20:19 | CONSULTATION REPORT E ---
Consultation Report NAME: VINICIUS VALLE : 1965 AGE: 52Y DATE: 07/02/2017 TO: JANEE HILL D.O. FROM: NIKUNJ DRAPER M.D. Requesting Physician OTOLARYNGOLOGY ER CONSULT/HISTORY AND PHYSICAL EXAMINATION REASON FOR CONSULTATION: Right ear injury. HISTORY OF PRESENT ILLNESS: This is a 52-year-old white male with history of small cell lung cancer status post chemotherapy and radiation therapy in the past. The patient reported getting out of bed early this past Saturday morning and falling/tripping and falling forward, striking the right side of his head on a table. He reports brief period of loss of consciousness. He states feeling the right side of his head at that time and then returned to bed. Later that day, 06/30/2017 the patient notes the ear appearing with dried, crusted blood. He did not seek medical attention until coming into the [place] ER today, 07/02/2017 for evaluation. The ER physician had called ENT to request consultation after the ER physician had performed a right ear block with wound washout, realizing the complexity of the injury. PAST MEDICAL HISTORY: 1. Small cell lung cancer status post chemotherapy and radiation therapy. 2. Hypertension. PAST SURGICAL HISTORY: 1. Patient status post bronchoscopy at [place] in [address] Girard. 2. History of orthopedic surgery with left wrist surgery. 3. Testicular torsion approximately 40 years ago. FAMILY HISTORY: None. SOCIAL HISTORY: DRUG ABUSE: None. SMOKING STATUS: Patient is a current daily smoker. ALLERGIES: CAT DANDER AND POLLEN. PHYSICAL EXAMINATION: VITAL SIGNS: Stable per ER evaluation. GENERAL: The patient is alert and oriented X 3 and in no apparent distress. HEENT: Head normocephalic with hair loss noted status post chemotherapy and right nubia-auricular ecchymosis on the right side. Eyes with extraocular muscles intact and the conjunctivae appeared normal. Ears: The right auricle is with an extensive [id number] extensive laceration involving the lower third with laceration extending from the helical margin into the conchal bowl adjacent the canal meatus. The right ear tissue surrounding the wound is inflamed, edematous, and appears with changes consistent with a crush type injury. Otherwise, the external auditory canals were with cerumen L>R, and right TM appeared intact and no HIMANSHU. The nose is with a deviated nasal septum and turbinate hypertrophy. Mouth is with moist mucous membranes and dental abnormalities noted throughout, oropharynx is with redundant soft palatal tissues and the tonsils appeared 1-2+ and cryptic in nature. NECK: With full range of motion and with no cervical spine tenderness. NEUROLOGICAL: Cranial nerves II through XII were grossly intact. SKIN: Was essentially unremarkable. HAIR: The patient is with new hair growth status post chemotherapy. RADIOLOGY: 1. CT head without contrast completed on 07/02/[address] brain [address] without contrast. No evidence of acute stroke. 2. CT facial area without contrast completed on 07/02/2017 with impression no acute findings/no facial bone fractures noted and no soft tissue masses or edema noted. IMPRESSION: 1. Extensive and complex right auricle/ear laceration. 2. Right periauricular tenderness to palpation with mild fullness/edema and mild ecchymosis. 3. Cerumen impactions left greater then right. PLAN: 1. After extensive discussion with the patient, recommendation and plan is to proceed to the main operating room for EUA ears with cleaning and right ear examination under anesthesia with washout, debridement, and complex repair of the right ear. The patient voiced an understanding of all that was discussed, desired to proceed with the surgical plan, and was in agreement. The risks, complications, alternatives, indications, and benefits of ear evaluations with cleaning and right ear surgery were discussed in detail with the patient. The risks and complications include and are not limited to bleeding, scarring, infection, injury to blood vessels and nerves, poor healing, tissue loss, hearing loss, tinnitus, balance difficulty cosmetic deformity, scar cicatrix, need for additional procedures, and rarely, . The patient voiced an understanding of all that was discussed, was in agreement, and consent was obtained. 2. The patient's injury and plan for definitive surgical management in the main operating room on 07/03/2017 was discussed with the ER staff prior to patient discharge from the ER. Otolaryngology consult was 45 minutes [id number] time which included the consultation, a decision for surgery was made, CT imaging was discussed with the patient, ER staff physician discussion and coordination of care was also provided which included scheduling the patient for next day surgical care. DICTATING PHYSICIAN: JANEE HILL D.O. [id number] PHY#: [id number] ID: [id number] JOB#: [id number] ACCT: [id number] cc:JANEE HILL D.O. > INOCENTE
== END 2017-07-02 15:23 | disposition home or self-care (01) ==
LOC: ER 09:53
DX: S06.0X9A Concussion with loss of consciousness of unspecified duration, initial encounter (principal); S01.311A Laceration without foreign body of right ear, initial encounter; R51 Headache; W19.XXXA Unspecified fall, initial encounter; Y93.89 Activity, other specified; I10 Essential (primary) hypertension; F17.210 Nicotine dependence, cigarettes, uncomplicated; Z85.118 Personal history of other malignant neoplasm of bronchus and lung; Z92.3 Personal history of irradiation; Z92.21 Personal history of antineoplastic chemotherapy; Z91.048 Other nonmedicinal substance allergy status; Z23 Encounter for immunization
CPT/HCPCS: 99284; 90471; 96375; 96365; 36415; 83735; 85025; 80053; 70450; 70486; 90715; 64450; J0690; J0295; J3490; J7030

== ENCOUNTER 2017-07-03 10:57 | Day surgery (SDC) | payer MEDICAID ==
--- NOTE | 2017-07-03 12:13 | RADIOLOGY REPORT (SQ) ---
EXAM DESCRIPTION: CHEST SINGLE VIEW COMPLETED DATE/TIME: 07/03/2017 11:35 am REASON FOR STUDY: PREOP COMPARISON: Chest film 07/30/2016 CT chest 08/27/2016, 12/28/2016, 04/23/2017, PET-CT 09/09/2016, 05/12/2017 EXAM PARAMETERS: NUMBER OF VIEWS: One view. TECHNIQUE: Single frontal radiographic view of the chest acquired. RADIATION DOSE: NA LIMITATIONS: None. FINDINGS: LUNGS AND PLEURA: Post treatment change, with shrinkage of the right upper lobe mass seen on 07/30/2016. There is now a bandlike scarring in the right upper hilum and right upper lobe likely post radiation change. Remainder of the lungs are well inflated and grossly clear. No pleural effusion. No pneumothorax. No acute infiltrates. MEDIASTINUM AND HILAR STRUCTURES: No masses. Contour normal. HEART AND VASCULAR STRUCTURES: Heart normal in size. Normal vasculature. BONES: Old healed left anterior lower rib fractures. HARDWARE: None in the chest. OTHER: No other significant finding. IMPRESSION: Decrease in size of right upper lobe small cell lung carcinoma as compared to plain film s 07/30/2016. TECHNICAL DOCUMENTATION: JOB ID: [id number] [employer]- All Rights Reserved Reading location - IP/workstation name: [email or web address]
[2017-07-03] MEDS ORDERED: PROPOFOL INJ 200 MG/20 ML VIAL IV ONE ×3 (13:11→14:52)
[2017-07-03] MEDS ORDERED: MIDAZOLAM 2 MG/2 ML INJ ONE (13:11)
[2017-07-03] MEDS ORDERED: LIDOCAINE 1%/EPINEPHRINE INJ 20 ML VIAL ONE (13:22)
[2017-07-03] MEDS ORDERED: BUPIVACAINE HCL 0.5%-EPI 1:200000 INJ/PF 30 ML VIAL ONE (13:27)
[2017-07-03] MEDS ORDERED: CIPROFLOXACIN HCL/DEXAMETH OTIC DROP 7.5 ML ONE (13:28)
[2017-07-03] MEDS ORDERED: FENTANYL CITRATE INJ/PF 100 MCG/2 ML AMPUL IV PRN ×3 (13:43)
[2017-07-03] MEDS ORDERED: OXYCODONE-ACETAMINOPHEN 5-325 MG TABLET PO PRN ×2 (13:43)
[2017-07-03] MEDS ORDERED: DIPHENHYDRAMINE HCL 50 MG/ML VIAL IV PRN (13:43)
[2017-07-03] MEDS ORDERED: MEPERIDINE HCL/PF INJ 25 MG/1 ML DISP.SYRIN IV PRN (13:43)
[2017-07-03] MEDS ORDERED: PROMETHAZINE HCL INJ 25 MG/1 ML VIAL IV PRN ×3 (13:43→16:25)
[2017-07-03] MEDS ORDERED: MORPHINE SULFATE 10 MG/ML INJ IV PRN (16:25)
[2017-07-03] MEDS ORDERED: ONDANSETRON HCL INJ/PF 4 MG/2 ML SDV IV PRN (16:25)
[2017-07-03] MEDS ORDERED: HYDROCODONE/ACETAMINOPHEN 5-325 MG TABLET PO PRN (16:25)
[2017-07-03] MEDS ORDERED: ONDANSETRON 4 MG TAB.RAPDIS PO PRN (17:14)
[2017-07-03 17:40] VITALS: BP 125/86
--- NOTE | 2017-07-07 18:39 | OPERATIVE REPORT E ---
Operative Report NAME: VINICIUS VALLE : 1965 AGE: 52Y DATE OF SURGERY: 07/03/2017 ROOM: PREOPERATIVE DIAGNOSIS: 1. Complex right ear injury. 2. Right otalgia. 3. Periauricular contusion. POSTOPERATIVE DIAGNOSIS: 1. Complex right ear injury. 2. Right otalgia. 3. Periauricular contusion. OPERATION: 1. Complex repair of right ear injury with total laceration length of 10 cm which includes through and through ear cartilage dissociation/disruption. 2. Examination under anesthesia of the right ear with washout and debridement. SURGEON: JANEE HILL D.O. ANESTHESIA: IV conscious sedation. ANESTHESIA STAFF: Hugh Toribio. ESTIMATED BLOOD LOSS: 5 mL. IV FLUIDS: *------* COMPLICATIONS: None. DRAINS: None. SPONGE COUNT: Verified. NEEDLE COUNT: Verified. MATERIALS FORWARDED SPECIMEN: None. FINDINGS: 1. Complex right ear laceration/injury with total laceration length of 10 cm. The patient's lower third of his ear was lacerated completely in half from the helical rim into the conchal bowl with full disruption of cartilage. This was also a crush type of injury and so there was damaged, atrophic and ischemic-appearing skin, soft tissue and extensive cartilage fragmentation was noted. 2. Also of note, the patient suffered this injury on Saturday and did not come into seek medical care until 07/02, almost 3 days after his injury. 3. The right periauricular area was with contusion of tissues with mild edema and ecchymosis and tenderness to palpation. INDICATIONS: This is a 52-year-old white male patient who was seen and evaluated in the [facility] Emergency Room on 07/02/2017. 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 The patient reports having a brief moment of loss of consciousness and then came to and felt the side of his head and then returned to bed. Later that day, he noted dried blood on the side of his head/ear which he washed off. He noted an injury to his right ear but did nontender realize the full extent of it. The patient's right ear was hurting and he knew it was injured and so sought medical attention on 07/02 at the [facility] Emergency Room. The ER staff noted the full extent of the right ear injury and performed an initial washout and evaluation of the area and realized the lower 1/3 of the ear was completely cut in half. The patient had also undergone CT facial imaging with no facial fractures identified. ENT was contacted for an ER consultation. The patient was seen and evaluated with recommendation and plan for management in the main operating room for examination under anesthesia of the right ear, washout and debridement, and complex wound closure which the patient voiced an understanding of and agreed with. The patient was fully aware that due to the delay in seeking medical attention that he may sustain tissue loss with resulting ear deformities and poor cosmetic appearance which he voiced an understanding of and accepted. The procedures and all of their risks and complications were all discussed in detail with the patient. He voiced an understanding of the described plan, agreed to proceed, and consent was obtained. PROCEDURE: The patient was taken to the main operating room and placed on the operating room table in the supine position. Appropriate monitors were placed. Using IV access, IV conscious sedation was established. At this point, the patient underwent a right ear examination with preparation followed by injection of local anesthetic with epinephrine to establish a right ear block. The patient was then prepped and draped for right ear surgery. There was ample irrigation of the right ear area with saline solution. Betadine irrigation and gentle scrub was also performed. Tissue that was fragmented, atrophic, and crushed was debrided. There was also granulation tissue present throughout the wound site which was also debrided. Once this was completed and fresh tissue margins were obtained, the wound was closed in a complex, layered fashion as follows: 5-0 PDS was used to reapproximate the cartilaginous framework. Next, 5-0 Monocryl was used to reapproximate the deep subcutaneous and deep dermal tissue layers. At this point, chromic suture was used to reapproximate the skin margins in the conchal bowl, the helical margin, and postauricular aspect. The anterior aspect of the lower 1/3 of the ear skin was reapproximated with 6-0 Prolene suture. The ear was then cleaned and dried followed by placement of Xeroform gauze, Bacitracin ointment, and a Plus Pressure dressing. At this point, the patient was returned to the anesthesia staff and was allowed to emerge from IV conscious sedation. The patient was then transferred to the post anesthesia recovery area in stable condition. DICTATING PHYSICIAN: JANEE HILL D.O. [id number] PHY#: [id number] ID: [id number] JOB#: [id number] ACCT: [id number] cc:JANEE HILL D.O. >
== END 2017-07-03 17:45 | disposition home or self-care (01) ==
LOC: OROUT 10:57
PROVIDERS: ATTEND Otolaryngology
DX: S01.311A Laceration without foreign body of right ear, initial encounter (principal); W01.0XXA Fall on same level from slipping, tripping and stumbling without subsequent striking against object, initial encounter; Y92.003 Bedroom of unspecified non-institutional (private) residence as the place of occurrence of the external cause; Z85.118 Personal history of other malignant neoplasm of bronchus and lung
CPT/HCPCS: 71045; 13152; 13153; J2250; J3490; J2704; 120

== ENCOUNTER → 2017-11-05 | Outpatient (CLI) | payer MEDICAID ==
--- NOTE | 2017-11-05 14:09 | RADIOLOGY REPORT (SQ) ---
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 Images stored on PACS. CONTRAST TYPE AND DOSE: 15 mL Dotarem. RENAL FUNCTION: GFR > 60. LIMITATIONS: None. FINDINGS: ANATOMY: No anomalies. Normal vascular flow voids. Pituitary fossa normal. CSF SPACES: Normal in size and contour. No hemorrhage. CEREBRUM: Sulci and gyri normal in size and contour. Moderate chronic bifrontal and biparietal white matter small vessel disease on FLAIR imaging, stable. No evidence of hemorrhage, mass, or extraaxial fluid collection. No abnormal enhancement post contrast. POSTERIOR FOSSA: No signal alteration. No hemorrhage. No edema, masses, or mass effect. Internal manuel tory canals, cerebellopontine angles, mastoids normal. No enhancing lesions. No abnormal enhancement post contrast. DIFFUSION IMAGING: Negative for acute or subacute infarction. ORBITS: No masses. Globes normal. PARANASAL SINUSES: No fluid levels. Mucosa normal. OTHER: No other significant finding. IMPRESSION: No acute findings. Stable chronic white matter disease. No abnormal masses or enhancem ent worrisome for brain metastatic disease given history of lung cancer EVIDENCE OF ACUTE STROKE: NO. TECHNICAL DOCUMENTATION: JOB ID: [id number] [employer]- All Rights Reserved Reading location - IP/workstation name: [facility]
== END ==
LOC: RAD 14:16
PROVIDERS: ATTEND Internal Medicine Medical Oncology
DX: C34.91 Malignant neoplasm of unspecified part of right bronchus or lung (principal)
CPT/HCPCS: 82565; 70553; A9576

== ENCOUNTER → 2017-11-19 | Outpatient (CLI) | payer MEDICAID ==
--- NOTE | 2017-11-19 12:27 | RADIOLOGY REPORT (SQ) ---
EXAM DESCRIPTION: CT CHEST WITH COMPLETED DATE/TIME: 11/19/2017 10:09 am REASON FOR STUDY: MALIGNANT NEOPLASM OF RT LUNG C34.91 MALIGNANT NEOPLASM OF UNSP PART OF RIGHT BRO NCHUS OR COMPARISON: 04/23/2017. PET-CT 05/12/2017. TECHNIQUE: CT scan of the chest performed using helical scanning technique with dynamic intravenous contrast injection. Images reviewed with lung, soft tissue and bone windows. Reconstructed coronal and sagittal MPR and MIP images reviewed. All images stored on PACS. All CT scanners at this facility use dose modulation, iterative reconstruction, and/or weight based d osing when appropriate to reduce radiation dose to as low as reasonably achievable (ALARA). [facility]: Dose Right [facility]: CareDose [facility]: Dose Right [facility]: Teradose 4D [facility]: [employer] CONTRAST TYPE AND DOSE: contrast/concentration: Isovue 350.00 mg/ml; Total Contrast Delivered: 79.0 ml; Total Saline Delivered: 45.9 ml RENAL FUNCTION: Creatinine 1.2 RADIATION DOSE: CT Rad equipment meets quality standard of care and radiation dose reduction techniq ues were employed. CTDIvol: 6.2 - 8.4 mGy. DLP: 650 mGy-cm. . LIMITATIONS: None. FINDINGS: LUNGS AND PLEURA: Slight change in morphology of the right lung mass splaying the major fi ssure superior segment right lower lobe. Overall volume not significantly changed. Central dystroph ic calcification. HILAR AND MEDIASTINAL STRUCTURES: No identified masses or abnormal nodes. HEART AND VASCULAR STRUCTURES: No aneurysm or dissection. No central pulmonary emboli. No pericardi al effusion. HARDWARE: None in the chest. UPPER ABDOMEN: See separate report of the CT of the abdomen. THYROID AND OTHER SOFT TISSUES: No masses. No adenopathy. BONES: No acute findings OTHER: No other significant finding. IMPRESSION: Stable right lung mass. TECHNICAL DOCUMENTATION: JOB ID: [id number] Quality ID # [id number]: Final reports with documentation of one or more dose reduction techniques (e.g., Au tomated exposure control, adjustment of the mA and/or kV according to patient size, use of iterative reconstruction technique) 2010 [employer]- All Rights Reserved Reading location - IP/workstation name: [email or web address]
--- NOTE | 2017-11-19 12:52 | RADIOLOGY REPORT (SQ) ---
EXAM DESCRIPTION: CT ABDOMEN IV CONTRAST ONLY COMPLETED DATE/TIME: 11/19/2017 10:09 am REASON FOR STUDY: MALIGNANT NEOPLASM OF RT LUNG C34.91 MALIGNANT NEOPLASM OF UNSP PART OF RIGHT BRO NCHUS OR COMPARISON: None. TECHNIQUE: CT scan of the abdomen performed with intravenous and without oral contrast using helical scanning technique with dynamic intravenous contrast injection. Images reviewed with lung, soft tiss ue, and bone windows. Reconstructed coronal and sagittal MPR images reviewed. Delayed images for eval uation of the urinary system also acquired and evaluated. All images stored on PACS. All CT scanners at this facility use dose modulation, iterative reconstruc tion, and/or weight based dosing when appropriate to reduce radiation dose to as low as reasonably ac hievable (ALARA). [facility]: Dose Right [facility]: CareDose [facility]: Dose Right [facility]: Teradose 4D [facility]: [employer] CONTRAST TYPE AND DOSE: 80 Isovue 370- low osmolar. RENAL FUNCTION: GFR > 60. RADIATION DOSE: . LIMITATIONS: None. FINDINGS: LOWER CHEST: See separate report of the CT of the chest. LIVER: Normal size. No masses. No dilated ducts. SPLEEN: Normal size. No focal lesions. PANCREAS: No masses. No significant calcifications. No adjacent inflammation or peripancreatic fluid collections. Pancreatic duct not dilated. GALLBLADDER: No identified stones by CT criteria. No inflammatory changes to suggest cholecystitis. ADRENAL GLANDS: No significant masses or asymmetry. RIGHT KIDNEY AND URETER: No solid masses. No significant calcifications. No hydronephrosis or hyd roureter. LEFT KIDNEY AND URETER: No solid masses. No significant calcifications. No hydronephrosis or hydr oureter. AORTA AND VESSELS: No aneurysm. No dissection. Renal arteries, SMA, celiac without stenosis. RETROPERITONEUM: No retroperitoneal adenopathy, hemorrhage or masses. BOWEL AND PERITONEAL CAVITY: No masses or inflammatory changes. No free fluid or peritoneal masses. APPENDIX: Not visualized. ABDOMINAL WALL: No masses. No hernias. BONES: No significant or acute findings. OTHER: No other significant finding. IMPRESSION: NORMAL CT OF THE ABDOMEN WITH INTRAVENOUS CONTRAST. No metastases. TECHNICAL DOCUMENTATION: JOB ID: [id number] Quality ID # [id number]: Final reports with documentation of one or more dose reduction techniques (e.g., Au tomated exposure control, adjustment of the mA and/or kV according to patient size, use of iterative reconstruction technique) 2010 [employer]- All Rights Reserved Reading location - IP/workstation name: [email or web address]
== END ==
LOC: RAD 09:13
PROVIDERS: ATTEND Internal Medicine Medical Oncology
DX: C34.91 Malignant neoplasm of unspecified part of right bronchus or lung (principal)
CPT/HCPCS: 71260; 74160; 82565

== ENCOUNTER → 2018-08-06 | Outpatient (CLI) | payer MEDICAID ==
--- NOTE | 2018-08-06 12:08 | RADIOLOGY REPORT (SQ) ---
EXAM DESCRIPTION: CHEST PA/LATERAL COMPLETED DATE/TIME: 08/06/2018 11:57 am REASON FOR STUDY: PERSONAL HISTORY OF MALIGNANT NEOPLASM OF BRONCHUS AND LUNG COMPARISON: 06/06/2011, 11/19/2017 EXAM PARAMETERS: NUMBER OF VIEWS: two views TECHNIQUE: Digital Frontal and Lateral radiographic views of the chest acquired. RADIATION DOSE: NA LIMITATIONS: none FINDINGS: LUNGS AND PLEURA: Emphysematous change with hilar and paramediastinal scarring, consolidat ion and bronchiectasis, grossly similar to prior CT. No evidence of new airspace disease. No pleura l effusion or pneumothorax. Consolidation paramediastinal MEDIASTINUM AND HILAR STRUCTURES: Right suprahilar opacity. HEART AND VASCULAR STRUCTURES: Heart normal size. No evidence for failure. BONES: No acute findings. HARDWARE: None in the chest. OTHER: No other significant finding. IMPRESSION: Persistent right suprahilar and paratracheal opacity, similar to CT dated 11/19/2017. No evidence of new acute cardiopulmonary process. TECHNICAL DOCUMENTATION: JOB ID: [id number] [employer]- All Rights Reserved Reading location - IP/workstation name: [email or web address]
== END ==
LOC: OD 11:31
PROVIDERS: ATTEND Internal Medicine Medical Oncology
DX: C34.91 Malignant neoplasm of unspecified part of right bronchus or lung (principal)
CPT/HCPCS: 71046

== ENCOUNTER → 2018-08-13 | Outpatient (CLI) | payer MEDICAID ==
[2018-08-13 13:04] LABS: ALBUMIN 4.5 g/dL (3.5-5.0); ALKALINE PHOSPHATASE 64 U/L (38-126); ANION GAP 11 (5-19); ASPARTATE AMINO TRANSFERASE 20 U/L (17-59); BILIRUBIN,DIRECT 0.2 mg/dL (0.0-0.4); BILIRUBIN,TOTAL 0.4 mg/dL (0.2-1.3); BLOOD UREA NITROGEN 10 mg/dL (7-20); CALCIUM 9.6 mg/dL (8.4-10.2); CARBON DIOXIDE 26 mmol/L (22-30); CHLORIDE 92 mmol/L (98-107); CHOLESTEROL 212.75 mg/dL (0-200); GLUCOSE 88 mg/dL (75-110); POTASSIUM 4.6 mmol/L (3.6-5.0); SODIUM 129.2 mmol/L (137-145); TOTAL PROTEIN 6.9 g/dL (6.3-8.2); TRIGLYCERIDES 43 mg/dL (<150)
[2018-08-13 13:05] LABS: ALANINE AMINOTRANSFERASE 18 U/L (21-72)
[2018-08-13 13:15] LABS: DIRECT LDL 126 mg/dL (<100)
== END ==
LOC: OD 11:46
PROVIDERS: ATTEND Internal Medicine
DX: C77.1 Secondary and unspecified malignant neoplasm of intrathoracic lymph nodes (principal); C34.11 Malignant neoplasm of upper lobe, right bronchus or lung; Z79.899 Other long term (current) drug therapy; E78.00 Pure hypercholesterolemia, unspecified; R35.0 Frequency of micturition; R39.15 Urgency of urination; Z29.8 Encounter for other specified prophylactic measures
CPT/HCPCS: 36415; 80053; 80061; 84153

== ENCOUNTER → 2019-02-26 | Outpatient (CLI) | payer MEDICAID, OTHER ==
--- NOTE | 2019-02-26 10:02 | RADIOLOGY REPORT (SQ) ---
EXAM DESCRIPTION: MRI HEAD COMBO COMPLETED DATE/TIME: 02/26/2019 9:21 am REASON FOR STUDY: LUNG CA C34.90 MALIGNANT NEOPLASM OF UNSP PART OF UNSP BRONCHUS OR L COMPARISON: 11/05/2017 TECHNIQUE: Multiplanar imaging includes noncontrasted T1, T2, FLAIR, diffusion with ADC map and post gadolinium contrast T1 sequences. Images stored on PACS. CONTRAST TYPE AND DOSE: 15 mL Dotarem. RENAL FUNCTION: Not indicated. ACR Type II contrast agent associated with few, if any, unconfounded cases of NSF LIMITATIONS: None. FINDINGS: ANATOMY: No anomalies. Normal vascular flow voids. Pituitary fossa normal. CSF SPACES: Normal in size and contour. No hemorrhage. CEREBRUM: Sulci and gyri normal in size and contour. There is worsening confluent subcortical T2 and FLAIR signal hyperintensity diffusely, significantly increased from prior. Additional subcortical a nd periventricular FLAIR signal hyperintensities, likely sequelae of microangiopathic disease. No ab normal masses or postcontrast enhancement. POSTERIOR FOSSA: No signal alteration. No hemorrhage. No edema, masses, or mass effect. Internal manuel tory canals, cerebellopontine angles, mastoids normal. No enhancing lesions. No abnormal enhancement post contrast. DIFFUSION IMAGING: Negative for acute or subacute infarction. ORBITS: No masses. Globes normal. PARANASAL SINUSES: Small right mastoid effusion. Remaining sinuses are clear. OTHER: No other significant finding. IMPRESSION: 1. No findings to suggest new intracranial metastatic disease. 2. Significant increase in diffuse subcortical white matter FLAIR signal hyperintensity likely seque lae of chemotherapy or prior radiation. EVIDENCE OF ACUTE STROKE: NO. Findings were discussed with Dr. Esparza At 0953 hours on 02/26/2019 TECHNICAL DOCUMENTATION: JOB ID: [id number] [employer]- All Rights Reserved Reading location - IP/workstation name: [email or web address]-
== END ==
LOC: RAD 08:16
PROVIDERS: ATTEND Internal Medicine Hematology & Oncology
DX: H74.8X1 Other specified disorders of right middle ear and mastoid (principal); C34.90 Malignant neoplasm of unspecified part of unspecified bronchus or lung
CPT/HCPCS: 82565; 70553; A9576

== ENCOUNTER → 2019-03-24 | Outpatient (CLI) | payer MEDICAID ==
--- NOTE | 2019-03-24 15:12 | RADIOLOGY REPORT (SQ) ---
EXAM DESCRIPTION: CT CHEST WITH COMPLETED DATE/TIME: 03/24/2019 9:36 am REASON FOR STUDY: C34.90 MALIGNANT NEOPLASM OF UNSP PART OF UNSP BRONCHUS OR LUNG C34.90 MALIGNANT NEOPLASM OF UNSP PART OF UNSP BRONCHUS OR L COMPARISON: 11/19/2017 and 04/23/2017. TECHNIQUE: CT scan of the chest performed using helical scanning technique with dynamic intravenous contrast injection. Images reviewed with lung, soft tissue and bone windows. Reconstructed coronal and sagittal MPR and MIP images reviewed. All images stored on PACS. All CT scanners at this facility use dose modulation, iterative reconstruction, and/or weight based d osing when appropriate to reduce radiation dose to as low as reasonably achievable (ALARA). [facility]: Dose Right [facility]: CareDose [facility]: Dose Right [facility]: Teradose 4D [facility]: [employer] CONTRAST TYPE AND DOSE: contrast/concentration: Isovue 350.00 mg/ml; Total Contrast Delivered: 80.0 ml; Total Saline Delivered: 55.0 ml RENAL FUNCTION: BUN 16 creatinine 1.44. RADIATION DOSE: CT Rad equipment meets quality standard of care and radiation dose reduction techniq ues were employed. CTDIvol: 9.2 mGy. DLP: 379 mGy-cm. . LIMITATIONS: None. FINDINGS: LUNGS AND PLEURA: Interval decrease in size of the mass in the medial right upper lobe. C urrent measurement 2.6 x 3.6 cm with prior measurement 3.2 x 4.3 cm. Central calcification. No new nodules or masses. Emphysematous changes with scarring. No pleural effusion or pleural thickening. HILAR AND MEDIASTINAL STRUCTURES: No identified masses or abnormal nodes. HEART AND VASCULAR STRUCTURES: No aneurysm or dissection. No central pulmonary emboli. No pericardi al effusion. HARDWARE: None in the chest. UPPER ABDOMEN: No significant findings. Fatty infiltration of the liver. Limited exam. THYROID AND OTHER SOFT TISSUES: No masses. No adenopathy. BONES: No significant finding. OTHER: No other significant finding. IMPRESSION: INTERVAL DECREASE IN SIZE OF THE MASS IN THE MEDIAL RIGHT UPPER LOBE. NO ADENOPATHY. N O NEW FINDINGS. TECHNICAL DOCUMENTATION: JOB ID: [id number] Quality ID # [id number]: Final reports with documentation of one or more dose reduction techniques (e.g., Au tomated exposure control, adjustment of the mA and/or kV according to patient size, use of iterative reconstruction technique) 2010 [employer]- All Rights Reserved Reading location - IP/workstation name: [email or web address]
== END ==
LOC: RAD 09:00
PROVIDERS: ATTEND Internal Medicine Hematology & Oncology
DX: C34.90 Malignant neoplasm of unspecified part of unspecified bronchus or lung (principal)
CPT/HCPCS: 71260